=== PATIENT | male | born 1955 | race Caucasian/White ===

== ENCOUNTER 2022-09-14 09:51 | Inpatient (IN) | payer MEDICARE ==
[~2022-09-14] VITALS: Ht 182.9 cm; Wt 94.1 kg
[2022-09-14] MEDS ORDERED: ALPRAZolam 0.25 MG (XANAX) TAB PO PRN (12:00)
[2022-09-14] MEDS ORDERED: FLEET ENEMA ADULT 1 EA BTL PR PRN (12:00)
[2022-09-14] MEDS ORDERED: LACTULOSE SYRUP 10GM/15ML (ENULOSE) 30ML UDC PO PRN (12:00)
[2022-09-14] MEDS ORDERED: LOPERAMIDE 2 MG (IMODIUM) TABLET PO PRN (12:00)
[2022-09-14] MEDS ORDERED: DOCUSATE SODIUM 100 MG (COLACE) CAP PO PRN (12:00)
[2022-09-14] MEDS ORDERED: CALCIUM CARBONATE 500 MG (TUMS) TAB.CHEW PO PRN (12:00)
[2022-09-14] MEDS ORDERED: diphenhydrAMINE 25 MG TAB (BENADRYL) PO PRN (12:00)
[2022-09-14] MEDS ORDERED: BISACODYL 10 MG SUPP (DULCOLAX) PR PRN (12:00)
[2022-09-14] MEDS ORDERED: ONDANSETRON 4 MG (ZOFRAN) ORAL DISSOLVE TAB PO PRN (12:00)
[2022-09-14] MEDS ORDERED: guaiFENesin/CODEINE (ROBITUSSIN AC) 10ML UDC PO PRN (12:00)
[2022-09-14] MEDS ORDERED: MELATONIN 3 MG TABLET PO PRN (12:00)
[2022-09-14] MEDS ORDERED: ACETAMINOPHEN 325 MG TABLET PO PRN (12:00)
--- NOTE | 2022-09-14 12:02 | PM&R Post Admission Assessment ---
PM&R Date of Visit: Sep 14, 2022 Time of Visit: 13:30 History of Present Illness CC: s/p Lumbar spine surgery due to lumbar stenosis with myelopathy HPI: This is a 66yoWM clinic patient of [facility] in [place] who has been in excellent health all of his life who presents to the ARU in need of stren gthening and fall risk prevention in order to DC home alone. Currently he is having severe pain and leaning over to the right when he stands. Bowel function has not returned yet but no urinary retention is present. We will monitor labs and work on fall risk prevention and regain independence in order to go home alone. [facility] summary: Hospital Course:William negro 66 y.o.malewho was admitted to [facility] 09/13/2022nd found to have a principle diagnosis of lumbar stenosis with neurogenic claudication. Patient underwent the scheduled surgical intervention.Postoperatively patient progressed well. However due to chronic deconditioning from his symptoms, and the fact that he lives alone, it is felt that he would benefit from inpatient rehabilitation. His arrangements were made and patient was excepted for transfer to [facility] inpatient rehab on postoperative day 1. Problems Addressed (Secondary Diagnoses): Active Hospital Problems Diagnosis Lumbar stenosis with neurogenic claudication Resolved Hospital Problems No resolved problems to display. Procedures performed: Procedure(s) (LRB): L3-5 Transforaminal Lumbar Interbody Fusion / Posterior Spinal Fusion with bone graft and instrumentation (N/A) Past Dihvliq-Ltdpcw-Rsmyit Hx Past Med/Social Hx: Reviewed Nursing Past Med/Soc Hx, Reviewed and Corrections made Patient Social History Marrital Status: single Employed/Student: retired Alcohol Use: Denies Use Smoking Status: Never a Smoker Past Medical History Surgeries: Orthopedic Genitourinary: Kidney Stones PM&R Allergy/Meds/Data Review Allergies Coded Allergies: aspirin (Verified Allergy, Severe, ANAPHYLACTIC SHOCK, 09/14/22) Home Medications Scheduled PRN Cyclobenzaprine HCl (Cyclobenzaprine HCl), 10 MG PO TID PRN for MUSCLE SPASMS, (Reported) Hydrocodone/Acetaminophen (Hydrocodone-Acetamin 10-325 mg), 1 EACH PO Q4H PRN for PAIN-MODERATE (5-7), (Reported) Naloxone HCl (Naloxone HCl), 1 SPRAY NS UD PRN for OPOID OD, (Reported) Current Medications Current Medications Reviewed Review of Systems Constitutional: see HPI, dizziness EENTM: no symptoms reported Respiratory: no symptoms reported Cardiovascular: no symptoms reported Gastrointestinal: constipation Genitourinary: no symptoms reported Musculoskeletal: back pain Skin: no symptoms reported Psychiatric/Neurological: No Symptoms Reported All Other Systems Reviewed Negative Unless Noted: Yes Physical Exam Physical Exam Vital Signs Capillary Refill : Height, Weight, BMI Height: '" Weight: lbs. oz. kg; BMI Method: General Appearance: No Apparent Distress, WD/WN Eyes: Bilateral Eye Normal Inspection, Bilateral Eye PERRL HEENT: PERRL/EOMI, Normal ENT Inspection, Pharynx Normal Neck: Full Range of Motion, Normal Inspection, Non Tender, Supple, Carotid Bruit Respiratory: Chest Non Tender, Lungs Clear, Normal Breath Sounds, No Accessory Muscle Use, No Respiratory Distress Cardiovascular: Regular Rate, Rhythm, No Edema, No Gallop, No JVD, No Murmur, Normal Peripheral Pulses Gastrointestinal: Normal Bowel Sounds, No Organomegaly, No Pulsatile Mass, Non Tender, Soft Back: Normal Inspection, Decreased Range of Motion, Vertebral Tenderness Extremity: Normal Capillary Refill, Normal Inspection, Normal Range of Motion, Non Tender, No Calf Tenderness, No Pedal Edema Neurologic/Psychiatric: Alert, Oriented x3, Normal Mood/Affect, food safety director II-XII Norm as Tested, Abnormal Gait, Motor Weakness (bilateral legs) Skin: Normal Color, Warm/Dry Lymphatic: No Adenopathy PM&R Medical Assessment & Plan REHAB/MEDICAL ASSESSMENT AND PLAN: REHAB IMPAIRMENT GROUP: Lumbar myelopathy ETIOLOGIC DIAGNOSIS: Lumbar myelopathy The comorbidities that impact the patients function and/or functional outcome by: severe pain, lives alone, leg weakness REHAB PLAN: The patient is being admitted to our comprehensive inpatient rehabilitation facility and can tolerate the intensity of service consisting of at least: 180 minutes of therapy a day, 5 out of 7 days a week Rehab treatment will consist of: PT OT will focus on regaining function in order to live alone at [place] with use of AD and increasing ADL function The patient/family has a good understanding of our discharge process and will benefit from an interdisciplinary inpatient rehabilitation program. The patient has potential to make improvement and is in need of at least two of the following multidisciplinary therapies including but not limited to physical, occupational, speech, and prosthetics and orthotics. Additionally the patient will need services from respiratory, nutritional services, wound care, psychology, etc. (Customize this to each patient). Given the patients complex condition and risk of further medical complications, rehabilitation services cannot be safely or effectively provided at a lower level of care such as a alf facility. BARRIERS TO DISCHARGE: Lives alone ESTIMATED LOS: 6 days DISPOSITION: Home RELEVANT CHANGES SINCE PREADMISSION SCREENING: I have compared the patients medical and functional status at the time of the preadmission screening and there are: no changes PROGNOSIS: Good REHABILITATION GOALS: 1. PT OT will focus on regaining function in order to live alone at [place] with use of AD and increasing ADL function All the above goals were reviewed with the patient and he/she is in agreement. By signing this document, I acknowledge that I have personally performed a full physical examination on this patient within 24 hours of admission to this inpatient rehabilitation facility and have determined the patient to be able to tolerate the above course of treatment at an intensive level for a reasonable period of time. I will be completing a detailed individualized Plan of Care for this patient by day #4 of the patients stay based upon the Preadmission Screen, the Post-Admission Evaluation, and the therapy evaluations. Admission Dx/Comorbidities: (1) Lumbar myelopathy ICD Codes: G95.9 - Disease of spinal cord, unspecified Assessment/Plan Assessment and Plan Assess & Plan/Chief Complaint Assessment: Lumbar myelopathy s/p lumbar spine surgery POD # 1 h/o kidney stones Post op constipation Elevated AST Leukocytosis likely stress related Post op acute blood loss anemia mild Plan: Monitor pain PT OT Pain control NETTIE RAYA DO Sep 14, 2022 12:02
--- OUTSIDE RECORDS SUMMARY | 2022-09-14 13:15 | XMS REPORT | Clinical Summary ---
Author Author [facility] Organization [facility] Address Unknown Phone Unavailable Care Team Providers Care Stucco Applicator Name Role Phone Suraj Rolle MD Unavailable Suraj Rolle MD PCP Source Comments Some departments are not documenting in the electronic medical record. If you d o not see the information that you expected, contact Release of Information in [facility] Information Management department at [phone] for further assistan ce in locating additional records.[facility] Allergies Comments Active Allergy Reactions Severity Noted Date Aspirin ANAPHYLAXIS, High 02/28/2015 EDEMA Medications End Date Status Medication Sig Dispensed Refills Start Date Active ibuprofen (ADVIL) 200 mg Take 200-400 0 tabletIndications: pain mg by mouth every 6 hours as needed for Pain. Take with food. Indications: pain Active traMADoL (ULTRAM) 50 mg Take one 35 tablet 0 tablet tablet by 2 mouth every 8 hours as needed for Pain. 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 Office Visit Oncology 07/02/2022 Travel from Last 3 Months Surgical History Surgery Date Site/Laterality Comments COLONOSCOPY HX CHOLECYSTECTOMY TUMOR EXCISION 06/02/2021 Buttocks/Left Excision LEFT b uttocks mass performed by Brayden Montoya MD at [facility] OR Social History Date Tobacco Use Types Packs/Day Years Used Smoking Tobacco: Never Smokeless Tobacco: Never Tobacco Cessation: Counseling Given: Not Answered Comments Alcohol Use Standard Drinks/Week Never 0 (1 standard drink = 0.6 o z pure alcohol) Alcohol Habits Answer Date Recorded How often do you have a drink containing alcohol? Never 05/24/2021 How many drinks containing alcohol do you have on No t asked a typical day when you are drinking? How often do you have six or more drinks on one Not asked occasion? Sex Assigned at Date Recorded Male 05/24/2021 1:22 PM CDT Obstetrics History Last Filed Vital Signs Reading Time Taken Comments Vital Sign 122/76 07/18/2022 11:19 AM LIBRARY CLERICAL ASSISTANT Blood Pressure 61 07/18/2022 11:19 AM LIBRARY CLERICAL ASSISTANT Pulse 36.7 C (98.1 F) 07/18/2022 11:19 AM LIBRARY CLERICAL ASSISTANT Temperature 18 07/18/2022 11:19 AM LIBRARY CLERICAL ASSISTANT Respiratory Rate 100% 07/18/2022 11:19 AM LIBRARY CLERICAL ASSISTANT Oxygen Saturation - - Inhaled Oxygen Concentration 96.8 kg (213 lb 6.4 oz) 07/18/2022 11:19 AM LIBRARY CLERICAL ASSISTANT Weight 182.9 cm (6') 07/18/2022 11:19 AM LIBRARY CLERICAL ASSISTANT Height 28.94 07/18/2022 11:19 AM LIBRARY CLERICAL ASSISTANT Body Mass Index Plan of Treatment Health Maintenance Due Date Last Done Comments MEDICARE ANNUAL WELLNESS 1955 VISIT COVID-19 VACCINE (#1) 05/07/1956 DTAP/TDAP VACCINES (1 - 11/05/1973 Tdap) HEPATITIS C SCREENING 11/05/1973 PHYSICAL (COMPREHENSIVE) 11/05/1973 EXAM COLORECTAL CANCER 11/05/2000 SCREENING SHINGLES RECOMBINANT 11/05/2005 VACCINE (1 of 2) PNEUMOCOCCAL VACCINE (1 - 11/05/2020 PCV) INFLUENZA VACCINE (#1) 2022 ADVANCED CARE PLANNING 08/05/2022 DISCUSSION AND DOCUMENTATION DEPRESSION SCREENING 08/05/2022 Procedures Comments Procedure Name Priority Date/Time Associated Diag nosis GA ARTHROCENTESIS Routine 07/18/2022 Trochanteric bursitis of ASPIR&/INJ MAJOR JT/BURSA 11:00 AM LIBRARY CLERICAL ASSISTANT left hip W/O US MRI LOWER EXT JNT WO/W Routine 07/03/2022 Left hi p pain CONT LEFT MRI PELVIS EXTERNAL Routine 07/03/2022 IMAGING 12:00 AM LIBRARY CLERICAL ASSISTANT from Last 3 Months Results * GA ARTHROCENTESIS ASPIR&/INJ MAJOR JT/BURSA W/O US (07/18/2022 11:00 AM LIBRARY CLERICAL ASSISTANT) Narrative OTHER OUTSIDE LAB - 07/18/2022 11:00 AM LIBRARY CLERICAL ASSISTANT Brayden Montoya MD 07/18/2022 12:11 PM Si Joint Injection Anesth/Steroid Location: hip L greater trochanteric bursa109/18/2021 11:00 AM Consent: Consent obtained: verbal Consent given by: patient Risks discussed: skin discoloration and soft tissue reaction Alternatives discussed: no treatment [place] Protocol: Relevant documents: relevant documents present and verified Test results: test results available and properly labeled Imaging studies: imaging studies available Required items: required blood products, implants, devices, and special equipment available Site marked: the operative site was not marked Patient identity confirmed: Patient identify confirmed verbally with patient. Time out: Immediately prior to procedure a "time out" was called to verify the correct patient, procedure, equipment, shipping support and site/side marked as required Procedures Details: Indications: pain Local anesthetic: ethyl chloride spray Needle size: 22 G Approach: lateral Medications administered: 3 mL bupivacaine PF 0.25 %; 40 mg triamcinolone acetonide 40 mg/mL Patient tolerance: Patient tolerated the procedure well with no immediate complications. Pressure was applied, and hemostasis was accomplished. Brayden Montoya MD PROCDOC ORDERABLES City/State/ZIP Code Phone Number Performing Address Organization OTHER OUTSIDE LAB * MRI PELVIS EXTERNAL IMAGING (07/03/2022 12:00 AM LIBRARY CLERICAL ASSISTANT) Anatomical Location / Laterality Collection Method / Volume Sayra ection Time Received Time Specimen (Source) Narrative Scheduling, Silent - 07/06/2022 9:49 AM LIBRARY CLERICAL ASSISTANT This order has been auto finalized and does not contain a result. Radiologist RADIOLOGY EXTERNAL ORDERABL ES Outpatient * MRI LOWER EXT JNT WO/W CONT LEFT (07/03/2022) Modality Anatomical Region Laterality Other LOWEREXT Left Brayden Montoya MD MR ORDERABLES from Last 3 Months Insurance Type Payer Benefit Subscriber ID Effective Phone Address Plan / Dates Group Medicare MEDICARE MEDICARE [id number] 2021-P [phone] [address] [place] [address] Medicare [place] [id number] 2022-P [phone] [address] [place] [address] (Home) [place] [address] Care Teams Start Date End Date Stucco Applicator Relationship Specialty 05/24/21 Suraj Rolle MD PCP - General Surgery [address] [place] [address] 05/16/21 Suraj Rolle MD Surgery [address] [place] [address]
--- OUTSIDE RECORDS SUMMARY | 2022-09-14 13:17 | XMS REPORT | Encounter Summary ---
Author Author [facility] Organization [facility] Address Unknown Phone Unavailable Care Team Providers Care Information Systems Security Officer Name Role Phone Suraj Rolle MD Unavailable Suraj Rolle MD PCP Reason for Visit * Reason Comments Follow Up RTC bursa injection Encounter Details Care Team Description [place] [address] [place] [address] Trochanteric bursitis of left hip (Prima ry Dx) 07/18/2022 Office Visit [facility]: [facility] Pavilion: [id number] [place] [phone] Social History Date Tobacco Use Types Packs/Day [...] Date Recorded Male 05/24/2021 1:22 PM CDT Date Recorded COVID-19 Exposure Response 07/18/2022 10:38 AM ASSISTANT PROFESSOR OF BIOLOGY In the last 10 days, have you been in contact with N o / Unsure someone who was confirmed or suspected to have Coronavirus/COVID-19? documented as of this encounter Last Filed Vital Signs Reading Time Taken Comments Vital Sign 122/76 07/18/2022 11:19 AM ASSISTANT PROFESSOR OF BIOLOGY Blood Pressure 61 07/18/2022 11:19 AM ASSISTANT PROFESSOR OF BIOLOGY Pulse 36.7 C (98.1 F) 07/18/2022 11:19 AM ASSISTANT PROFESSOR OF BIOLOGY Temperature 18 07/18/2022 11:19 AM ASSISTANT PROFESSOR OF BIOLOGY Respiratory Rate 100% 07/18/2022 11:19 AM ASSISTANT PROFESSOR OF BIOLOGY Oxygen Saturation - - Inhaled Oxygen Concentration 96.8 kg (213 lb 6.4 oz) 07/18/2022 11:19 AM ASSISTANT PROFESSOR OF BIOLOGY Weight 182.9 cm (6') 07/18/2022 11:19 AM ASSISTANT PROFESSOR OF BIOLOGY Height 28.94 07/18/2022 11:19 AM ASSISTANT PROFESSOR OF BIOLOGY Body Mass Index documented in this encounter Functional Status Date of Assessment Functional Status Response 07/18/2022 Does the patient have a hearing impairment: No 07/18/2022 Does the patient have a visual impairment: Yes 07/18/2022 Does the patient have impaired ambulation: Yes 07/18/2022 Does the patient have an activity of daily living No (ADL) impairment: 07/18/2022 Does the patient have an instrumental activity of No daily living (IADL) impairment: Date of Assessment Cognitive Status Response 07/18/2022 Does the patient have a cognitive impairment: No documented as of this encounter Progress Notes * Brayden Montoya MD - 07/18/2022 11:00 AM CST Orthopaedic Post-Operative Visit Date of Visit:07/18/22 DIAGNOSIS: Atypical Lipoma of the left buttock Left trochanteric bursitis PROCEDURE: Marginal Excision on 06/02/2021 PLAN: injection of greater trochanter today ASSESSMENT William Villalpando returns to discuss continued pain over the left greater troc hanter. MRI is negative for abnormalities beyond expected postsurgical changes. His pain is located directly over the greater trochanter. Will attempt a ster oid injection today. Return to clinic as needed. Interval Hx: Interval update as above PHYSICAL EXAM: -No palpable soft tissue masses -Normal ROM with hip flexion -Weakness with hip abduction -Tenderness to palpation over the greater trochanter STANT PROFESSOR OF BIOLOGY documented in this encounter Procedure Notes * Bryaden Montoya MD - 07/18/2022 11:00 AM CSTAssociated Order(s): Si Joint Injection Anesth/Steroid Post-Procedure Diagnose(s): Trochanteric bursitis of left hip Si Joint Injection Anesth/Steroid Location: hip L greater trochanteric bursa109/18/2021 11:00 AM Consent: Consent obtained: verbal Consent given by: patient Risks discussed: skin discoloration and soft tissue reaction Alternatives discussed: no treatment [place] Protocol: Relevant documents: relevant documents present and verified Test results: test results available and properly labeled Imaging studies: imaging studies available Required items: required blood products, implants, devices, and special equipmen t available Site marked: the operative site was not marked Patient identity confirmed: Patient identify confirmed verbally with patient. Time out: Immediately prior to procedure a "time out" was called to verify the c orrect patient, procedure, equipment, office support associate and site/side marked as requ ired Procedures Details: Indications: pain Local anesthetic: ethyl chloride spray Needle size: 22 G Approach: lateral Medications administered: 3 mL bupivacaine PF 0.25 %; 40 mg triamcinolone aceton tonia 40 mg/mL Patient tolerance: Patient tolerated the procedure well with no immediate compli cations. Pressure was applied, and hemostasis was accomplished. STANT PROFESSOR OF BIOLOGY documented in this encounter Plan of Treatment Not on filedocumented as of this encounter Procedures Comments Procedure Name Priority Date/Time Associated Diag nosis UT ARTHROCENTESIS Routine 07/18/2022 Trochanteric bursitis of ASPIR&/INJ MAJOR JT/BURSA 11:00 AM ASSISTANT PROFESSOR OF BIOLOGY left hip W/O US documented in this encounter Results * UT ARTHROCENTESIS ASPIR&/INJ MAJOR JT/BURSA W/O US (07/18/2022 11:00 AM ASSISTANT PROFESSOR OF BIOLOGY) Narrative OTHER OUTSIDE LAB - 07/18/2022 11:00 AM Brayden Weiss MD 07/18/2022 12:11 PM Si Joint Injection Anesth/Steroid Location: hip L greater trochanteric bursa109/18/2021 11:00 AM Consent: Consent obtained: verbal Consent given by: patient Risks discussed: skin discoloration and soft tissue reaction Alternatives discussed: no treatment [place] Protocol: Relevant documents: relevant documents present and [...] to verify the correct patient, procedure, equipment, office support associate and site/side marked as required Procedures Details: [...] Number Performing Address Organization OTHER OUTSIDE LAB documented in this encounter Visit Diagnoses Diagnosis Trochanteric bursitis of left hip - Dennise blas Enthesopathy of hip region documented in this encounter Administered Medications Action Date Dose Rate Site Medication Order MAR Action 07/18/2022 11:48 AM ASSISTANT PROFESSOR OF BIOLOGY 4 mL bupivacaine HCl (MARCAINE) 0.25 % Given injection 4 mL 4 mL, Injection, ONCE, 1 dose, On Sat07/18/22 at 1245 07/18/2022 11:00 AM ASSISTANT PROFESSOR OF BIOLOGY 3 mL bupivacaine PF (MARCAINE) 0.25 % Given injection 3 mL 3 mL, Injection, ONCE PRN, 1 dose, Starting on Sat07/18/22 at 1100, Until Sat07/18/22 at 1100 07/18/2022 11:49 AM ASSISTANT PROFESSOR OF BIOLOGY 40 mg Hip, Lef t triamcinolone acetonide (KENALOG-40) Given injection 40 mg 40 mg, Intramuscular, ONCE, 1 dose, On Sat07/18/22 at 1245 07/18/2022 11:00 AM ASSISTANT PROFESSOR OF BIOLOGY 40 mg triamcinolone acetonide (KENALOG-40) Given injection 40 mg 40 mg, Injection, ONCE PRN, 1 dose, Starting on Sat07/18/22 at 1100, Until Sat07/18/22 at 1100 documented in this encounter Additional Health Concerns Noted Time Assessment 07/18/2022 11:21 AM ASSISTANT PROFESSOR OF BIOLOGY A fall risk assessment has been complet ed for the patient documented as of this encounter Care Teams Start Date End Date Information Systems Security Officer Relationship Specialty 05/24/21 Suraj Rolle MD PCP - General Surgery [address] [place] [address] 05/16/21 Suraj Rolle MD Surgery [address] [place], [place] [phone] documented as of this encounter
--- OUTSIDE RECORDS SUMMARY | 2022-09-14 13:17 | XMS REPORT | Encounter Summary ---
Author Author [facility] Organization [facility] Address Unknown Phone Unavailable Care Team Providers Care Dance Therapist Name Role Phone Suraj Rolle MD Unavailable Suraj Rolle MD PCP Encounter Details Care Team Description Date Type Department 07/18/2022 Travel Social History Date Tobacco Use Types Packs/Day Years Used Smoking Tobacco: Never Smokeless Tobacco: Never Comments Alcohol Use Standard Drinks/Week Never 0 [...] Recorded COVID-19 Exposure Response 07/18/2022 10:38 AM FLUID DESIGNER In the last 10 days, have you been in contact with N o / Unsure someone who was confirmed or suspected to have Coronavirus/COVID-19? documented as of this encounter Functional Status Date of Assessment [...] impairment: No documented as of this encounter Plan of Treatment Not on filedocumented as of this encounter Visit Diagnoses Not on filedocumented in this encounter Additional Health Concerns Noted Time Assessment 07/18/2022 11:21 AM FLUID DESIGNER A fall risk assessment has been complet ed for the patient documented as of this encounter Care Teams Start Date End Date Dance Therapist Relationship Specialty 05/24/21 Suraj Rolle MD PCP - General Surgery [address] [place] [phone] 05/16/21 Suraj Rolle MD Surgery [address] [place] [phone] documented as of this encounter
[2022-09-14 13:30] VITALS: BP 120/85
[2022-09-14] MEDS ORDERED: CYCL10TA25 PO (13:57)
[2022-09-14] MEDS ORDERED: NALO4SPR3 NS (13:57)
[2022-09-14] MEDS ORDERED: HYDR-3820 PO (13:57)
--- NOTE | 2022-09-14 14:24 | ST Cognitive Linguistic Eval ---
Speech Evaluation-General Medical Diagnosis s/p L3-5, TLIF/PSF Onset Date: Sep 14, 2022 Therapy Diagnosis Therapy Diagnosis: Intact (Baseline) Cognition Precautions Precautions: Fall Precautions/Isolations: Fall Prevention, Standard Precautions Referral Referring Physician: Dr. Michel Reason for Referral: Evaluation/Treatment Medical History Reviewed History: Yes Speech PLF-Current Status Prior Level of Function The patient denied prior concerns or difficulties with his speech, language, cognition or swallowing. Per patient, "I may need to read something two or three times now but that's okay." The patient reported the use of glasses but stated his vision is "fine" without them as they are not present at the facility. Subjective The patient was lying in bed, awake and alert, upon entrance to his room by the clinician. The patient greeted the clinician appropriately and was agreeable to participation in the cognitive linguistic assessment. Language Eval: Auditory Comprehends Simple Yes/No Ques: Functional Indent/Objects Multiple [place]: Functional Follows 1-Step Commands: Functional Follows General Conversations: Functional Language Eval: Verbal Language Completes Spontaneous Greeting: Functional Produces Auto, Serial Info: Functional Word Finding: Functional Requests Basic Needs: Functional Language Evaluation: Reading Follows Simple Written Direct: Functional Language Evaluation: Writing Writes to Simple Dictation: Functional Cognitive Patient Orientation The patient was independently oriented to self, location, month, day of the week, date and year. Objective Cognitive Domain Attention: WNL Memory: WNL Problem Solving: Functional Executive Functions: WNL Visuospatial Skills: WNL Composite Severity Rating: WNL Clock Drawing Severity Rating: WNL Objective Formal/Standardized Tests [facility] Mental Status Exam (UMS) Results The patient demonstrated a result of +28/30 on the SLUMS correlating to a result of cognitive linguistic skills within normal limits. Oral Motor/Speech Production The patient does not display dysarthria or apraxia of speech at this time. The patient is 100% intelligible in known and unknown contexts. Impression The patient displayed intact cognitive linguistic skills. Skilled speech pathology services are not warranted at this time. Speech-Plan Treatment Plan Speech Therapy Treatment Plan: Discontinue ST Treatment Duration: Sep 14, 2022 Frequency: 1 time per week Estimated Hrs Per Day: .25 hour per day Rehab Potential: Good Pt/Family Agrees to Plan: Yes Safety Risks/Education Teaching Recipient: Patient Teaching Methods: Discussion Response to Teaching: Verbalize Understanding Education Topics Provided: Results, Recommendations, Plan of Care Time Speech Therapy Time In: 14:40 Speech Therapy Time Out: 15:00 DATE: Sep 14, 2022 Total Billed Time: 20 Billed Treatment Time 1, DIO SARMIENTO ELIZ[facility]ETH ST Sep 14, 2022 14:24
--- NOTE | 2022-09-14 14:33 | Physical Therapy Evaluation ---
PT Evaluation-General Medical Diagnosis Admission Date Sep 14, 2022 at 13:12 Medical Diagnosis: s/p L3-5, TLIF/PSF Onset Date: Sep 14, 2022 Therapy Diagnosis Therapy Diagnosis: impaired mobility Precautions Precautions/Isolations: Fall Prevention, Standard Precautions Weight Bear Status back precautions and restricted lifting Referral Physician: Jodi iMchel DO Reason for Referral: Evaluation/Treatment Medical History Reviewed History: Yes Social History Home: Single Level Current Living Status: Alone Entry Into Home: Stairs Without Railing PT Steps Into Home: 2 Prior Prior Level of Function SCALE: Activities may be completed with or without assistive devices. 6-Xzvbkghfdd-vyxvkdh completes the activity by him/herself with no assistance from a helper. 5-Set-up or Clean-up Assistance-helper sets up or cleans up; patient completes activity. [place] assists only prior to or following the activity. 4-Supervision or Touching Assistance-helper provides verbal cues and/or touchin g/steadying and/or contact guard assistance as patient completes activity. Assistance may be provided throughout the activity or intermittently. 3-Partial/Moderate Assistance-helper does LESS THAN HALF the effort. [place] lifts, holds or supports trunk or limbs, but provides less than half the effort. 2-Substantial/Maximal Assistance-helper does MORE THAN HALF the effort. [place] lifts or holds trunk or limbs and provides more than half the effort. 9-Uzfzpdrxy-uuamja does ALL the effort. Patient does none of the effort to complete the activity. Or, the assistance of 2 or more helpers is required for the patient to complete the activity. If activity was not attempted, code reason: 7-Patient Refused. 9-Not Applicable-not attempted and the patient did not perform the activity before the current illness, exacerbation or injury. 10-Not Attempted due to Environmental Limitations-(lack of equipment, weather restraints, etc.). 88-Not Attempted due to Medical Conditions or Safety Concerns. Bed Mobility: 6 Transfers (B,C,W/C): 6 Gait: 6 Stairs: 6 Indoor Mobility (Ambulation): Independent Stairs: Independent Patient states he has been using a single point cane for 9-10 weeks. PT Evaluation-Current Subjective Patient comes to hospital via family vehicle, has 5/10 low back pain. Will be co-treating with OT for part of tx due to poor patient mobility, strength, endurance, pain with activity, coordinate UE and LE with activity, safety and reduce risk of falls. Pain Section J - Health Conditions 1. Rarely or not at all 2. Occasionally 3. Frequently 4. Almost constantly 8. Unable to answer Pain Effect on Sleep: 2 Pain Interference with Therapy: 2 Pain Interference w/Day-to-Day: 2 Pt/Family Goals to be independent at home. Objective Patient Orientation: Person, Place, Situation back brace ROM/Strength ROM Lower Extremities WNL Strength Lower Extremities LLE (hip flexion 3+/5, knee flexion 4/5, knee extension 4/5, dorsiflexion 3+/5), RLE (hip flexion 3+/5, knee flexion 4/5, knee extension 4/5, dorsiflexion 3+/5) Sensory Vision: Functional Hearing: Functional Sensation Right Lower Extremit: Intact Sensation Left Lower Extremity: Intact Transfers Roll Left & Right (QC): 4 Sit to Lying (QC): 4 Lying to Sitting/Side of Bed(Q: 4 Sit to Stand (QC): 3 Chair/Cwo-qz-Mtyra Xfer(QC): 4 Toilet Transfer (QC): 4 Car Transfer (QC): 3 Patient performs rolling and supine <-> sit with SBA (has quite a bit of pain with supine <-> sit but can do it on his own), sit <-> stand min assist, transfers CGA, car transfer min assist. Patient needs cues for hand placement and positioning. In his room, patient performs bathing and dressing in front of sink, PT assist with positioning and safety. Gait Does the Patient Walk?: Yes Mode of Locomotion: Walk Anticipated Mode of Locomotion: Walk Walk 10 feet (QC): 4 Walk 50 ft with 2 Turns(QC): 4 Walk 150 ft (QC): 4 Walking 10ft/uneven surface-QC: 3 Distance: 150', 100' Gait Assistive Device: FWW Comments/Gait Description Patient can ambulate 150' with a rolling walker with CGA (including 50' with at least 2 turns of 90 degrees but needs min assist for 10' over an uneven surface), gait is slow, bears a lot of weight through his arms to take strain off his back, mostly slides feet across the floor and tends to drag his left foot a little. Wheelchair Training Wheel 50 ft with 2 turns (QC): 9 Wheel 150 ft (QC): 9 Stairs 1 Step (curb) (QC): 88 4 Steps (QC): 88 12 Steps (QC): 88 Stairs not performed, no safe, patient has extreme pain when not bearing heavy weight through his arms. Balance Sitting Static: Good Sitting Dynamic: Good Standing Static: Fair Standing Dynamic: Fair Picking up an Object (QC): 4 (CGA using a dishroom attendant) Treatment Standing activity placing pegs and reaching with one hand to work on core strength and activity tolerance. PT performed bed mobility and transfers, ambulation, positioning and safety during bathing and dressing, standing and safety during peg and reaching activity, OT performed bathing, dressing, peg and reaching activity, coordinate UE and LE during activity Assessment/Needs Patient in bed post tx with nurse call, phone, tray, all needs met. Patient has impaired mobility, strength, endurance, severe pain with activity. He does need min assist for sit <-> stand. Rehab Potential: Fair PT Assisted Goals Assisted Goals PT Memory Care Program Director Goals Time Frame: Sep 28, 2022 Roll Left to Right (QC): 6 Sit to Lying (QC): 6 Lying-Sitting on Side/Bed(QC): 6 Sit to Stand (QC): 4 (SBA) Chair/Gvf-sm-Mvtwu Xfer(QC): 4 (SBA) Toilet/Commode Transfer (QC): 4 (SBA) Car Transfer (QC): 4 (SBA) Does the Patient Walk: Yes Walk 10 feet (QC): 4 (SBA) Walk 10ft-Uneven Surface(QC): 4 (SBA) Walk 50ft with 2 Turns (QC): 4 (SBA) Walk 150 ft (QC): 4 (SBA) Wheel 50 feet with 2 turns (QC: 9 Wheel 150 feet: 9 1 Step (curb) (QC): 4 (CGA) 4 Steps (QC): 4 (CGA) 12 Steps (QC): 88 Picking up an Object (QC): 4 (SBA using a dishroom attendant) PT Plan Problem List Problem List: Activity Tolerance, Functional Strength, Safety, Balance, Gait, Transfer, Bed Mobility, ROM Treatment/Plan Treatment Plan: Continue Plan of Care Treatment Plan: Bed Mobility, Education, Functional Activity Veronica, Functional Strength, Group Therapy, Gait, Safety, Therapeutic Exercise, Transfers Treatment Duration: Sep 28, 2022 Frequency: At least 5 of 7 days/Wk (IRF) Estimated Hrs Per Day: 1.5 hours per day Patient and/or Family Agrees t: Yes Safety Risks/Education Patient Education: Gait Training, Transfer Techniques, Reviewed Precautions, Correct Positioning, W/C Management, Reviewed Don/Doff Brace, Safety Issues Teaching Recipient: Patient Teaching Methods: Demonstration, Discussion Response to Teaching: Reinforcement Needed Discharge Recommendations Plan Patient will perform bed mobility and transfer training, balance and endurance training, functional strengthening, stair training, gait training, and education, to improve functional mobility and independence at home. Therapy Discharge Recommendati: Home & Family, Post Acute PT Time Time In: 1310 Time Out: 1440 DATE: Sep 14, 2022 Total Billed Treatment Time: 80 Total Billed Treatment 1 visit EVM 10' FA 70' PT eval from [id number], OT eval from [id number], co-treat from [id number] DEVANG NUNN PT Sep 14, 2022 14:33
--- NOTE | 2022-09-14 14:40 | Occupational Therapy Eval ---
OT Evaluation-General/PLF Medical Diagnosis Admission Date Sep 14, 2022 at 13:12 Medical Diagnosis: s/p L3-5, TLIF/PSF Onset Date: Sep 14, 2022 Therapy Diagnosis Therapy Diagnosis: decreased ADL status Precautions Precautions/Isolations: Fall Prevention, Standard Precautions Comments Back brace when OOB, Back Precautions, 5lb lifting restriction Referral Physician: Anand Referral Reason: Evaluation/Treatment Medical History Current History Pt began having low back pain and LE pain ~6 months ago. s/p L3-5 TLIF/PSF 09/13/[address] Christine. Pt transferred to [facility] 09/14/22 Social History Home: Single Level Current Living Status: Alone Entry Into Home: Stairs Without Railing Steps Into Home: 2 ADL-Prior Level of Function SCALE: Activities may be completed with or without assistive devices. 1-Xyrdraewna-pqrgntx completes the activity by him/herself with no assistance from a helper. 5-Set-up or Clean-up Assistance-helper sets up or cleans up; patient completes activity. [place] assists only prior to or following the activity. 4-Supervision or Touching Assistance-helper provides verbal cues and/or touching/steadying and/or contact guard assistance as patient completes activity. Assistance may be provided throughout the activity or intermittently. 3-Partial/Moderate Assistance-helper does LESS THAN HALF the effort. [place] lifts, holds or supports trunk or limbs, but provides less than half the effort. 2-Substantial/Maximal Assistance-helper does MORE THAN HALF the effort. [place] lifts or holds trunk or limbs and provides more than half the effort. 5-Fncpbvzel-zzevmw does ALL the effort. Patient does none of the effort to complete the activity. Or, the assistance of 2 or more helpers is required for the patient to complete the activity. If activity was not attempted, code reason: 7-Patient Refused. 9-Not Applicable-not attempted and the patient did not perform the activity before the current illness, exacerbation or injury. 10-Not Attempted due to Environmental Limitations-(lack of equipment, weather restraints, etc.). 88-Not Attempted due to Medical Conditions or Safety Concerns. ADL PLOF Comments Pt reports IND with ADLS and functional mobility, he has been using a cane recently due to LE and back pain. Pt has both a walk in shower and a tub/shower, no SC. Self Care: Independent Functional Cognition: Independent OT Current Status Subjective Pt agreeable to OT evaluation followed by OT/PT cotreat. Mental Status/Objective Patient Orientation: Person, Place, Time, Situation Attachments: Other-See Comments (back brace) Current Hand Dominance: Right Upper Extremity ROM WFL, BUE shoulder flexion to approx 150 degrees Upper Extremity Coordination WFL Upper Extremity Sensation WFL Upper Extremity Strength grossly 4+/5 BUEs ADL-Treatment Eating (QC): 6 Oral Hygiene (QC): 6 (seated) Shower/Bathe Self (QC): 4 (CGA in stand with sponge bath) Upper Body Dressing (QC): 3 (Min A with back brace. Set up with shirt.) Lower Body Dressing (QC): 4 (CGA) On/Off Footwear (QC): 3 (Min A with gripper socks.) Toileting Hygiene (QC): 4 (CGA) Other Treatments OT evaluation complete. OT/PT cotreat due to skill of 2 clinicians required which a rehabilitation specialist could not perform in order to coordinate UE/LEs, decrease fall risk, and due to pt's limitations in strength, activity tolerance, standing tolerance/balance, and mobility/transfers. OT focused on UE placement, cues for sequencing and safety and ADLs, PT focused on LE placement, gross overall movement, transfers and mobility. Pt completed functional mobility/transfers including car transfer, mobility using FWW, uneven surface. Pt completed sponge bath, dressing and grooming tasks seated at sink. Pt taken to therapy gym via w/c, completing functional standing activity in parallel bars. Pt able to complete LUE reaching task, placing x30 pegs into foam pegboard, holding onto parallel bar with RUE. Pt attempted task with RUE, but increased pain in R hip when pt let go of parallel bar. Pt took seated rest break, then stood in parallel bars, reaching x10 reps with RUE in various planes, after a few reps pt again began having increased pain so task terminated. Pt used FWW to return to room, sit EOB, then transfer supine. Post tx, pt in bed, call light in reach and all needs met. Pt able to recall 1/3 back precautions throughout tx, requiring min VCs to adhere to precautions. SBA rolling and supine to/from sit, min A sit to/from stand, CGA transfers, min A car transfer. Pt requires cues for UE placement and positioning. Pt able to perform functional mobility 150' with FWW, CGA (min A on uneven surface). Education OT Patient Education: Correct positioning, Energy conservation, Modified ADL techniques, Progress toward Goal/Update tx plan, Purpose of tx/functional activities, Reviewed precautions, Rehab process, Safety issues, Transfer techniques Teaching Recipient: Patient Teaching Methods: Discussion Response to Teaching: Verbalize Understanding BIMS CAM BIMS Expression of Ideas and Wants: Without Difficulty Understanding Verbal Content: Understands Brief Interview/Mental Status: Yes IRF GRECIA BIMS: IRF GRECIA BIMS Response (Comments) Value Repitition of Three Words Three 3 Recalls Socks No, Could Not Recall (boots) 0 Recalls Blue Yes, No Cue Required 2 Recalls Bed Yes, No Cue Required 2 Year Correct 3 Month Accurate Within 5 Days 2 Day Correct 1 Total 13 Should Staff Asses. Mental St[address] No CAM Mental Status Change/Baseline: 0 Inattention: 0 Disorganized thinkin Altered level of consciousness: 0 OT Short Term Goals Short Term Goals Time Frame: Sep 26, 2022 Upper body dressin Lower body dressin Putting on/taking off footwear: 5 OT Long-Term Goals Long-Term Goals Time Frame: Oct 05, 2022 Eating (QC): 6 Oral Hygiene (QC): 6 Toileting Hygiene (QC): 6 Shower/Bathe Self (QC): 5 Upper Body Dressing (QC): 6 Lower Body Dressing (QC): 6 On/Off Footwear (QC): 6 Additional Goals: 1-Demonstrate ADL Tasks, 2-Verbalize Understanding, 3- ImproveStrength/Veronica 1=Demonstrate adherence to instructed precautions during ADL tasks. 2=Patient will verbalize/demonstrate understanding of assistive devices/modifications for ADL. 3=Patient will improve strength/tolerance for activity to enable patient to perform ADL's. OT Education/Plan Problem List/Assessment Assessment: Decreased Activ Tolerance, Impaired Funct Balance, Impaired I ADL's, Impaired Self-Care Skills Discharge Recommendations Plan/Recommendations: Continue POC Treatment Plan/Plan of Care Patient would benefit from OT for education, treatment and training to promote independence in ADL's, mobility, safety and/or upper extremity function for ADL's. Plan of Care: ADL Retraining, Functional Mobility, Group Exercise/Act as Ind, UE Funct Exercise/Act Treatment Duration: Oct 05, 2022 Frequency: At least 5 of 7 days/Wk (IRF) Estimated Hrs Per Day: 1.5 hours per day Agreement: Yes Rehab Potential: Good Time Start Time: 13:20 Stop Time: 14:40 DATE: Sep 14, 2022 Total Time Billed (hr/min): 80 Billed Treatment Time [id number] OT eval (10'), [id number] Cotreat (70') 1, EVM (10'), ADL 2 (35'), FA 2 (35') ARUN VALLE OT Sep 14, 2022 14:40
[2022-09-14] MEDS ORDERED: RX-CYCLOBENZAPRINE 10 MG (FLEXERIL) TAB PPK#3 PO PRN (17:00)
[2022-09-14] MEDS ORDERED: CYCLOBENZAPRINE 10 MG (FLEXERIL) TAB PO PRN (17:30)
[2022-09-14 20:45] VITALS: BP 128/76
[2022-09-14] MEDS: DOCUSATE SODIUM 100 MG (COLACE) CAP PO SCH (21:14)
[2022-09-14] MEDS: SENNA W/DOCUSATE (SENOKOT S) TABLET PO SCH (21:14)
[2022-09-14] MEDS: polyethylene glycoL POWDER 17 GM (MIRALAX) PACK PO SCH (21:15)
[2022-09-15 05:26] LABS: BASOPHILS % (AUTO) 0 % (0-10); EOSINOPHILS % (AUTO) 0 % (0-10); HEMATOCRIT 36 % (40-54); HEMOGLOBIN 12.1 g/dL (13.3-17.7); LYMPHOCYTES # (AUTO) 1.9 10^3/uL (1.0-4.0); LYMPHOCYTES % (AUTO) 15 % (12-44); MEAN CORPUSCULAR HEMOGLOBIN 31 pg (25-34); MEAN CORPUSCULAR HGB CONC 33 g/dL (32-36); MEAN CORPUSCULAR VOLUME 94 fL (80-99); MEAN PLATELET VOLUME 9.9 fL (9.0-12.2); MONOCYTES # (AUTO) 1.4 10^3/uL (0.0-1.0); MONOCYTES % (AUTO) 11 % (0-12); NEUTROPHILS # (AUTO) 9.5 10^3/uL (1.8-7.8); NEUTROPHILS % (AUTO) 74 % (42-75); PLATELET COUNT 180 10^3/uL (130-400); WHITE BLOOD COUNT 12.9 10^3/uL (4.3-11.0)
[2022-09-15 05:41] LABS: ALBUMIN 3.9 GM/DL (3.2-4.5)
[2022-09-15 05:44] LABS: TOTAL PROTEIN 6.9 GM/DL (6.4-8.2)
[2022-09-15 05:46] LABS: BILIRUBIN,TOTAL 1.6 MG/DL (0.1-1.0)
[2022-09-15 05:47] LABS: CREATININE SERUM 0.85 MG/DL (0.60-1.30)
[2022-09-15 07:53] VITALS: BP 118/79
[2022-09-15] MEDS: DOCUSATE SODIUM 100 MG (COLACE) CAP PO SCH ×3 (09:01→19:58)
[2022-09-15] MEDS: SENNA W/DOCUSATE (SENOKOT S) TABLET PO SCH ×3 (09:02→19:58)
[2022-09-15] MEDS: polyethylene glycoL POWDER 17 GM (MIRALAX) PACK PO SCH ×2 (09:02→19:58)
--- NOTE | 2022-09-15 09:51 | Physical Therapy Daily Note ---
PT Daily Note-Current Subjective Pt in chair upon arrival and agrees to PT. Says he is feeling a lot better today. Rates his pain 1-2/10 Pain Section J - Health Conditions 1. Rarely or not at all 2. Occasionally 3. Frequently 4. Almost constantly 8. Unable to answer Pain Effect on Sleep: 2 Pain Interference with Therapy: 2 Pain Interference w/Day-to-Day: 2 Mental Status Patient Orientation: Person, Place, Time, Situation Transfers SCALE: Activities may be completed with or without assistive devices. 8-Idagqymagf-yyucokh completes the activity by him/herself with no assistance from a helper. 5-Set-up or Clean-up Assistance-helper sets up or cleans up; patient completes activity. [place] assists only prior to or following the activity. 4-Supervision or Touching Assistance-helper provides verbal cues and/or touching/steadying and/or contact guard assistance as patient completes activity. Assistance may be provided throughout the activity or intermittently. 3-Partial/Moderate Assistance-helper does LESS THAN HALF the effort. [place] lifts, holds or supports trunk or limbs, but provides less than half the effort. 2-Substantial/Maximal Assistance-helper does MORE THAN HALF the effort. [place] lifts or holds trunk or limbs and provides more than half the effort. 1-Lmjwzyvsz-aolqvw does ALL the effort. Patient does none of the effort to complete the activity. Or, the assistance of 2 or more helpers is required for the patient to complete the activity. If activity was not attempted, code reason: 7-Patient Refused. 9-Not Applicable-not attempted and the patient did not perform the activity before the current illness, exacerbation or injury. 10-Not Attempted due to Environmental Limitations-(lack of equipment, weather restraints, etc.). 88-Not Attempted due to Medical Conditions or Safety Concerns. Sit to Stand (QC): 4 Weight Bearing back precautions and restricted lifting Gait Training Does the Patient Walk?: Yes Distance: 500' Walk 10 feet (QC): 5 Walk 50 ft with 2 Turns(QC): 4 Walk 150 ft (QC): 4 Gait Assistive Device: FWW Exercises Seated Therapy Exercises: Ankle pumps, Sit to stand, Long arc quads, Hip flexion Seated Reps: 20 Treatments Pt in amb TFs from chair and amb out into rader 500' and then amb back to room and TFs back to recliner and performs seated exs. Pt in chair upon departure w/ all needs met and call light nearby. Assessment Current Status: Good Progress Pt required cues for hand and foot placement during TFs and while amb w/ FWW. PT Slip Tender Goals Slip Tender Goals PT Detention Goals Time Frame: Sep 28, 2022 Roll Left & Right (QC): 6 Sit to Lying (QC): 6 Lying-Sitting on Side/Bed(QC): 6 Sit to Stand (QC): 4 (SBA) Chair/Ljm-kl-Bcajn Xfer(QC): 4 (SBA) Toilet Transfer (QC): 4 (SBA) Car Transfer (QC): 4 (SBA) Does the Patient Walk: Yes Walk 10 feet (QC): 4 (SBA) Walk 50ft with 2 Turns (QC): 4 (SBA) Walk 150 ft (QC): 4 (SBA) Walking 10ft on Uneven Surface: 4 (SBA) 1 Step (curb) (QC): 4 (CGA) 4 Steps (QC): 4 (CGA) 12 Steps (QC): 88 Picking up an Object (QC): 4 (SBA using a program admin) Wheel 50 feet with 2 turns (QC: 9 Wheel 150 feet: 9 PT Plan Problem List Problem List: Activity Tolerance, Functional Strength Treatment/Plan Treatment Plan: Continue Plan of Care Treatment Plan: Bed Mobility, Education, Functional Activity Veronica, Functional Strength, Group Therapy, Gait, Safety, Therapeutic Exercise, Transfers Treatment Duration: Sep 28, 2022 Frequency: At least 5 of 7 days/Wk (IRF) Estimated Hrs Per Day: 1.5 hours per day Patient and/or Family Agrees t: Yes Safety Risks/Education Patient Education: Gait Training, Transfer Techniques, Correct Positioning Teaching Recipient: Patient Teaching Methods: Discussion Response to Teaching: Return Demonstration Time Time In: 804 Time Out: 824 DATE: Sep 15, 2022 Total Billed Treatment Time: 20 Total Billed Treatment 1, GT 20 min SHANTELLE CHAVEZ HORSE BREEDER Sep 15, 2022 09:51
--- NOTE | 2022-09-15 12:52 | PM&R Progress Note ---
Subjective HPI/CC On Admission Date Seen by Provider: Sep 15, 2022 Time Seen by Provider: 11:00 Subjective/Events-last exam 09/15/2022: Patient doing well Pain controlled with meds Moving around better Gaining strength Review of Systems General: Fatigue, Malaise Musculoskeletal: back pain Objective Exam Vital Signs Vital Signs Date Time Temp Pulse Resp B/P (MAP) Pulse Ox O2 Delivery O2 Flow Rate FiO2 09/15/22 21:00 Room Air 09/15/22 19:49 36.7 67 16 103/67 (79) 97 Capillary Refill : General Appearance: No Apparent Distress, WD/WN HEENT: PERRL/EOMI, Normal ENT Inspection, Pharynx Normal Neck: Full Range of Motion, Normal Inspection, Non Tender, Supple, Carotid Bruit Respiratory: Chest Non Tender, Lungs Clear, Normal Breath Sounds, No Accessory Muscle Use, No Respiratory Distress Cardiovascular: Regular Rate, Rhythm, No Edema, No Gallop, No JVD, No Murmur, Normal Peripheral Pulses Gastrointestinal: Normal Bowel Sounds, No Organomegaly, No Pulsatile Mass, Non Tender, Soft Back: Normal Inspection, Decreased Range of Motion, Vertebral Tenderness Extremity: Normal Capillary Refill, Normal Inspection, Normal Range of Motion, Non Tender, No Calf Tenderness, No Pedal Edema Neurologic/Psychiatric: Alert, Oriented x3, Normal Mood/Affect, director telecommunications II-XII Norm as Tested, Abnormal Gait, Motor Weakness (bilateral legs) Skin: Normal Color, Warm/Dry Lymphatic: No Adenopathy Results/Procedures Lab Patient resulted labs reviewed. FIM Transfers Therapy Code Descriptions/Definitions Functional [place] Measure: 0=Not Assessed/NA 4=Minimal Assistance 1=Total Assistance 5=Supervision or Setup 2=Maximal Assistance 6=Modified [place] 3=Moderate Assistance 7=Complete IndependenceSCALE: Activities may be completed with or without assistive devices. 8-Tpcwnknurq-zwwcxko completes the activity by him/herself with no assistance from a helper. 5-Set-up or Clean-up Assistance-helper sets up or cleans up; patient completes activity. Cook assists only prior to or following the activity. 4-Supervision or Touching Assistance-helper provides verbal cues and/or touching/steadying and/or contact guard assistance as patient completes activity. Assistance may be provided throughout the activity or intermittently. 3-Partial/Moderate Assistance-helper does LESS THAN HALF the effort. Cook lifts, holds or supports trunk or limbs, but provides less than half the effort. 2-Substantial/Maximal Assistance-helper does MORE THAN HALF the effort. Cook lifts or holds trunk or limbs and provides more than half the effort. 5-Vstxdzdew-cumjxa does ALL the effort. Patient does none of the effort to complete the activity. Or, the assistance of 2 or more helpers is required for the patient to complete the activity. If activity was not attempted, code reason: 7-Patient Refused. 9-Not Applicable-not attempted and the patient did not perform the activity before the current illness, exacerbation or injury. 10-Not Attempted due to Environmental Limitations-(lack of equipment, weather restraints, etc.). 88-Not Attempted due to Medical Conditions or Safety Concerns. Roll Left to Right (QC): 4 Sit to Lying (QC): 4 Sit to Stand (QC): 4 Chair/Cwe-hg-Lvzgx Xfer(QC): 4 Car Transfer (QC): 3 Gait Training Does the Patient Walk?: Yes Distance: 500' Walk 10 feet (QC): 5 Walk 50 ft with 2 Turns(QC): 4 Walk 150 ft (QC): 4 Walking 10ft/uneven surface-QC: 3 Gait Assistive Device: FWW Wheelchair Training Wheel 50 ft with 2 turns (QC): 9 Wheel 150 ft (QC): 9 Stair Training 1 Step (curb) (QC): 88 4 Steps (QC): 88 12 Steps (QC): 88 Balance Picking up an Object (QC): 4 (CGA using a anchor tacker) ADL-Treatment Eating (QC): 6 Oral Hygiene (QC): 6 (seated) Shower/Bathe Self (QC): 4 (CGA in stand with sponge bath) Upper Body Dressing (QC): 3 (Min A with back brace. Set up with shirt.) Lower Body Dressing (QC): 4 (CGA) On/Off Footwear (QC): 3 (Min A with gripper socks.) Toileting Hygiene (QC): 4 (CGA) Assessment/Plan Assessment and Plan Assess & Plan/Chief Complaint Assessment: Lumbar myelopathy s/p lumbar spine surgery POD # 2 h/o kidney stones Post op constipation Elevated AST Leukocytosis likely stress related Post op acute blood loss anemia mild Plan: Monitor pain PT OT Pain control 09/15/2022: Supportive care (1) Lumbar myelopathy NETTIE RAYA DO Sep 15, 2022 12:52
--- NOTE | 2022-09-15 12:52 | Individualized Plan of Care ---
Individualized Plan of Care Rehab Nursing IPOC Order Admission Date Sep 14, 2022 at 13:12 Current Orders Orders Admission Order(Inpt,Obs,Sdc) (09/14/22 11:52) Vital Signs: Per Unit Policy ( 08,16,00 (09/14/22 11:52) Artemio Braun , (09/14/22 11:52) Sequential Compression Device (09/14/22 11:52) Electromyographic Technician-Inpt Rehab Con (09/14/22 11:52) Rehab Nursing Orders-Ipoc (09/14/22 11:52) Physical Therapy Rehab Orders (09/14/22 11:52) Occupational Therapy Rehab Ord (09/14/22 11:52) Speech Therapy Rehab Orders (09/14/22 11:52) Cbc With Automated Diff (09/15/22 06:00) Comprehensive Metabolic Panel (09/15/22 06:00) Precautions (Aru) (09/14/22 11:52) Weekly Weight WEEK (09/14/22 11:52) Rehab-Intensity Of Therapy (09/14/22 11:52) Initiate Admission Nursing Pro .admission (09/14/22 11:52) Alprazolam Tablet (Xanax Tablet) (09/14/22 12:00) Calcium Carbonate Chew Tablet (Antacid C (09/14/22 12:00) Diphenhydramine Tablet (Benadryl Tablet) (09/14/22 12:00) Docusate Sodium Capsule (Colace Capsule) (09/14/22 21:00) Docusate Sodium Capsule (Colace Capsule) (09/14/22 12:00) Bisacodyl Suppository (Dulcolax Supposit (09/14/22 12:00) Lactulose Oral Solution (Enulose Oral So (09/14/22 12:00) Na Phos/Na Biphos Enema (Fleet Enema Celso (09/14/22 12:00) Guaifenesin/Codeine Syrup (Robitussin Ac (09/14/22 12:00) Loperamide Tablet (Imodium Tablet) (09/14/22 12:00) Melatonin Tablet (Melatonin Tablet) (09/14/22 12:00) Polyethylene Glycol Powder Pkt (Miralax (09/14/22 21:00) Ondansetron Oral Dissolve Tab (Zofran (09/14/22 12:00) Senna S Tablet (Senokot S Tablet) (09/14/22 21:00) Acetaminophen Tablet/Caplet (Tylenol T (09/14/22 12:00) Code/Resuscitation (09/14/22 11:52) Initiate Admission Nursing Pro .admission (09/14/22 11:52) Vte Contraindication (09/14/22 11:52) Patient Visit (09/14/22 ) Pt Eval Moderate Complexity (09/14/22 ) Functional Activities, Ea 15 (09/14/22 ) Patient Visit (09/14/22 ) Treat. Speech/Lang/Voice (09/14/22 ) Speech Sound Lang Comp (09/14/22 ) Nursing Communication (Order) (09/14/22 15:08) General/Regular (09/14/22 Dinner) Rx-Cyclobenzaprine Tablet (Rx-Flexeril T (09/14/22 17:00) Hydrocodone/Apap 10/325 Tablet (Lortab 1 (09/14/22 17:00) Cyclobenzaprine Tablet (Flexeril Tablet) (09/14/22 17:30) Patient Visit (09/15/22 ) Gait Training, Ea 15 Min (09/15/22 ) Rehab Nursing Orders: Ongoing Assess. of Cognitive Status, Ongoing Assess. of Function Status, Bladder Management, Bladder Scan, Bladder Training, Bowel Management, Bowel Training, Disease Management & Educaiton, DVT Prophylaxis, F all Prevention, Fluid/Electrolyte/Nutrition Mgmt, Infection Prevention, Medication Management & Education, Management of Risks & Complications, Nutrition Management, Pain Management, Patient/Family Support, Safety Management, Wound Management Intensity of Therapy to be met Patient to be seen: Min.3h per day/5 of 7d PT IPOC Problem List: Activity Tolerance, Functional Strength Treatment Plan: Continue Plan of Care Bed Mobility, Education, Functional Activity Veronica, Functional Strength, Group Therapy, Gait, Safety, Therapeutic Exercise, Transfers Treatment Duration: Sep 28, 2022 Frequency: At least 5 of 7 days/Wk (IRF) Estimated Hrs Per Day: 1.5 hours per day OT IPOC Problems: Decreased Activ Tolerance, Impaired Funct Balance, Impaired I ADL's, Impaired Self-Care Skills OT Treatment, Training and Edu: Yes Plan of Care: ADL Retraining, Functional Mobility, Group Exercise/Act as Ind, UE Funct Exercise/Act Treatment Duration: Oct 05, 2022 Frequency: At least 5 of 7 days/Wk (IRF) Estimated Hrs Per Day: 1.[address] IPOC Speech Therapy Treatment Plan: Discontinue ST Treatment Duration: Sep 14, 2022 Frequency: 1 time per week Estimated Hrs Per Day: .25 hour per day Electromyographic Technician/Case Mgmt Electromyographic Technician/Case Managemen: Discharge Planning Dietitian/Weight Caller Dietitian/Weight Caller to monitor nutritional status and make changes and/or recommendations as needed and work with speech pathology on dietary upgrades as the occur. Physician IPOC Medical Issues being managed closely and that require the 24 hour availability of a physician: Recent lumbar spine surgery with slow recovery and severe pain and increased fall risk and lives alone needs close monitoring for any decompensation Medical Issues: Bowel/Bladder Function, DVT Prophylaxis, Falls Precautions, Fluid/Electrolyte/Nutrition Balance, Infection Protection, Pain Management, Wound Care Brief Synthesis of Preadmission Screen, Post-Admission Evaluation, and Therapy Evaluations: PT OT will focus on regaining function with use of AD in order to regain stamina and decrease fall risk in order to return home to live independently Medical Prognosis: Good Anticipated Length of Stay: 6 days NETTIE RAYA DO Sep 15, 2022 12:52
[2022-09-15 19:49] VITALS: BP 103/67
[2022-09-16 07:20] VITALS: BP 110/70
--- NOTE | 2022-09-16 07:34 | PM&R Progress Note ---
Subjective HPI/CC On Admission Date Seen by Provider: Sep 16, 2022 Time Seen by Provider: 12:00 Subjective/Events-last exam 09/16/2022: Improved status Cousin at bedside and all questions are answered Moving around well Working on transfers 09/15/2022: Patient doing well Pain controlled with meds Moving around better Gaining strength Review of Systems General: Fatigue, Malaise Objective Exam Vital Signs Vital Signs Date Time Temp Pulse Resp B/P (MAP) Pulse Ox O2 Delivery O2 Flow Rate FiO2 09/16/22 08:10 Room Air 09/16/22 07:20 36.5 70 18 110/70 (83) 97 Capillary Refill : General Appearance: No Apparent Distress, WD/WN HEENT: PERRL/EOMI, Normal ENT Inspection, Pharynx Normal Neck: Full Range of Motion, Normal Inspection, Non Tender, Supple, Carotid Br uit Respiratory: Chest Non Tender, Lungs Clear, Normal Breath Sounds, No Accessory Muscle Use, No Respiratory Distress Cardiovascular: Regular Rate, Rhythm, No Edema, No Gallop, No JVD, No Murmur, Normal Peripheral Pulses Gastrointestinal: Normal Bowel Sounds, No Organomegaly, No Pulsatile Mass, Non Tender, Soft Back: Normal Inspection, Decreased Range of Motion, Vertebral Tenderness Extremity: Normal Capillary Refill, Normal Inspection, Normal Range of Motion, Non Tender, No Calf Tenderness, No Pedal Edema Neurologic/Psychiatric: Alert, Oriented x3, Normal Mood/Affect, livestock trader II-XII Norm as Tested, Abnormal Gait, Motor Weakness (bilateral legs) Skin: Normal Color, Warm/Dry Lymphatic: No Adenopathy Results/Procedures Lab Patient resulted labs reviewed. FIM Transfers Therapy Code Descriptions/Definitions Functional [place] Measure: 0=Not Assessed/NA 4=Minimal Assistance 1=Total Assistance 5=Supervision or Setup 2=Maximal Assistance 6=Modified [place] 3=Moderate Assistance 7=Complete IndependenceSCALE: Activities may be completed with or without assistive devices. 3-Golevbnacs-sfpablc completes the activity by him/herself with no assistance from a helper. 5-Set-up or Clean-up Assistance-helper sets up or cleans up; patient completes activity. [place] assists only prior to or following the activity. 4-Supervision or Touching Assistance-helper provides verbal cues and/or touching/steadying and/or contact guard assistance as patient completes activity. Assistance may be provided throughout the activity or intermittently. 3-Partial/Moderate Assistance-helper does LESS THAN HALF the effort. [place] lifts, holds or supports trunk or limbs, but provides less than half the effort. 2-Substantial/Maximal Assistance-helper does MORE THAN HALF the effort. [place] lifts or holds trunk or limbs and provides more than half the effort. 3-Setcsdluh-kgwpkj does ALL the effort. Patient does none of the effort to complete the activity. Or, the assistance of 2 or more helpers is required for the patient to complete the activity. If activity was not attempted, code reason: 7-Patient Refused. 9-Not Applicable-not attempted and the patient did not perform the activity before the current illness, exacerbation or injury. 10-Not Attempted due to Environmental Limitations-(lack of equipment, weather restraints, etc.). 88-Not Attempted due to Medical Conditions or Safety Concerns. Roll Left to Right (QC): 4 Sit to Lying (QC): 4 Sit to Stand (QC): 4 Chair/Jul-cx-Ijzyk Xfer(QC): 4 Car Transfer (QC): 3 Gait Training Does the Patient Walk?: Yes Distance: 500' Walk 10 feet (QC): 5 Walk 50 ft with 2 Turns(QC): 4 Walk 150 ft (QC): 4 Walking 10ft/uneven surface-QC: 3 Gait Assistive Device: FWW Wheelchair Training Wheel 50 ft with 2 turns (QC): 9 Wheel 150 ft (QC): 9 Stair Training 1 Step (curb) (QC): 88 4 Steps (QC): 88 12 Steps (QC): 88 Balance Picking up an Object (QC): 4 (CGA using a radiology ct technologist) ADL-Treatment Eating (QC): 6 Oral Hygiene (QC): 6 (seated) Shower/Bathe Self (QC): 4 (CGA in stand with sponge bath) Upper Body Dressing (QC): 3 (Min A with back brace. Set up with shirt.) Lower Body Dressing (QC): 4 (CGA) On/Off Footwear (QC): 3 (Min A with gripper socks.) Toileting Hygiene (QC): 4 (CGA) Assessment/Plan Assessment and Plan Assess & Plan/Chief Complaint Assessment: Lumbar myelopathy s/p lumbar spine surgery POD # 3 h/o kidney stones Post op constipation Elevated AST Leukocytosis likely stress related Post op acute blood loss anemia mild Plan: Monitor pain PT OT Pain control 09/15/2022: Supportive care 09/16/2022: Monitor pain (1) Lumbar myelopathy NETTIE RAYA DO Sep 16, 2022 07:34
[2022-09-16] MEDS: DOCUSATE SODIUM 100 MG (COLACE) CAP PO SCH ×2 (09:01→21:50)
[2022-09-16] MEDS: SENNA W/DOCUSATE (SENOKOT S) TABLET PO SCH ×2 (09:01→21:50)
[2022-09-16] MEDS: polyethylene glycoL POWDER 17 GM (MIRALAX) PACK PO SCH ×2 (11:08→21:30)
[2022-09-16 20:00] VITALS: BP 109/67
--- NOTE | 2022-09-17 05:09 | PM&R Progress Note ---
Subjective HPI/CC On Admission Date Seen by Provider: Sep 17, 2022 Time Seen by Provider: 08:30 Subjective/Events-last exam 09/17/2022: Improved overall Wants to DC soon No major concerns 09/16/2022: Improved status Cousin at bedside and all questions are answered Moving around well Working on transfers 09/15/2022: Patient doing well Pain controlled with meds Moving around better Gaining strength Review of Systems General: Fatigue, Malaise Objective Exam Vital Signs Vital Signs Date Time Temp Pulse Resp B/P (MAP) Pulse Ox O2 Delivery O2 Flow Rate FiO2 09/17/22 20:54 36.6 72 18 126/83 (97) 96 Room Air Capillary Refill : General Appearance: No Apparent Distress, WD/WN HEENT: PERRL/EOMI, Normal ENT Inspection, Pharynx Normal Neck: Full Range of Motion, Normal Inspection, Non Tender, Supple, Carotid Bruit Respiratory: Chest Non Tender, Lungs Clear, Normal Breath Sounds, No Accessory Muscle Use, No Respiratory Distress Cardiovascular: Regular Rate, Rhythm, No Edema, No Gallop, No JVD, No Murmur, Normal Peripheral Pulses Gastrointestinal: Normal Bowel Sounds, No Organomegaly, No Pulsatile Mass, Non Tender, Soft Back: Normal Inspection, Decreased Range of Motion, Vertebral Tenderness Extremity: Normal Capillary Refill, Normal Inspection, Normal Range of Motion, Non Tender, No Calf Tenderness, No Pedal Edema Neurologic/Psychiatric: Alert, Oriented x3, Normal Mood/Affect, elementary school social worker II-XII Norm as Tested, Abnormal Gait, Motor Weakness (bilateral legs) Skin: Normal Color, Warm/Dry Lymphatic: No Adenopathy Results/Procedures Lab Laboratory Tests 09/17/22 05:59 Patient resulted labs reviewed. FIM Transfers Therapy Code Descriptions/Definitions Functional [place] Measure: 0=Not Assessed/NA 4=Minimal Assistance 1=Total Assistance 5=Supervision or Setup 2=Maximal Assistance 6=Modified [place] 3=Moderate Assistance 7=Complete IndependenceSCALE: Activities may be completed with or without assistive devices. 1-Tygzucerxk-vzfyhgl completes the activity by him/herself with no assistance from a helper. 5-Set-up or Clean-up Assistance-helper sets up or cleans up; patient completes activity. [place] assists only prior to or following the activity. 4-Supervision or Touching Assistance-helper provides verbal cues and/or touching/steadying and/or contact guard assistance as patient completes activity. Assistance may be provided throughout the activity or intermittently. 3-Partial/Moderate Assistance-helper does LESS THAN HALF the effort. [place] lifts, holds or supports trunk or limbs, but provides less than half the effort. 2-Substantial/Maximal Assistance-helper does MORE THAN HALF the effort. [place] lifts or holds trunk or limbs and provides more than half the effort. 1-Gtmaxvdfi-igazin does ALL the effort. Patient does none of the effort to complete the activity. Or, the assistance of 2 or more helpers is required for the patient to complete the activity. If activity was not attempted, code reason: 7-Patient Refused. 9-Not Applicable-not attempted and the patient did not perform the activity before the current illness, exacerbation or injury. 10-Not Attempted due to Environmental Limitations-(lack of equipment, weather restraints, etc.). 88-Not Attempted due to Medical Conditions or Safety Concerns. Roll Left to Right (QC): 4 Sit to Lying (QC): 4 Sit to Stand (QC): 4 Chair/Zft-zn-Tdsvx Xfer(QC): 4 Car Transfer (QC): 3 Gait Training Does the Patient Walk?: Yes Distance: 500' Walk 10 feet (QC): 5 Walk 50 ft with 2 Turns(QC): 4 Walk 150 ft (QC): 4 Walking 10ft/uneven surface-QC: 3 Gait Assistive Device: FWW Wheelchair Training Wheel 50 ft with 2 turns (QC): 9 Wheel 150 ft (QC): 9 Stair Training 1 Step (curb) (QC): 88 4 Steps (QC): 88 12 Steps (QC): 88 Balance Picking up an Object (QC): 4 (CGA using a district ranger) ADL-Treatment Eating (QC): 6 Oral Hygiene (QC): 6 (seated) Shower/Bathe Self (QC): 4 (CGA in stand with sponge bath) Upper Body Dressing (QC): 3 (Min A with back brace. Set up with shirt.) Lower Body Dressing (QC): 4 (CGA) On/Off Footwear (QC): 3 (Min A with gripper socks.) Toileting Hygiene (QC): 4 (CGA) Assessment/Plan Assessment and Plan Assess & Plan/Chief Complaint Assessment: Lumbar myelopathy s/p lumbar spine surgery POD # 4 h/o kidney stones Post op constipation Elevated AST Leukocytosis likely stress related Post op acute blood loss anemia mild Plan: Monitor pain PT OT Pain control 09/15/2022: Supportive care 09/16/2022: Monitor pain 09/17/2022: Labs improved Continue aggressive therapy (1) Lumbar myelopathy NETTIE RAYA DO Sep 17, 2022 05:09
[2022-09-17 06:08] LABS: BASOPHILS % (AUTO) 0 % (0-10); EOSINOPHILS # (AUTO) 0.1 10^3/uL (0.0-0.3); EOSINOPHILS % (AUTO) 1 % (0-10); HEMATOCRIT 37 % (40-54); HEMOGLOBIN 12.2 g/dL (13.3-17.7); LYMPHOCYTES # (AUTO) 1.7 10^3/uL (1.0-4.0); LYMPHOCYTES % (AUTO) 19 % (12-44); MEAN CORPUSCULAR HEMOGLOBIN 31 pg (25-34); MEAN CORPUSCULAR HGB CONC 33 g/dL (32-36); MEAN CORPUSCULAR VOLUME 94 fL (80-99); MEAN PLATELET VOLUME 9.6 fL (9.0-12.2); MONOCYTES # (AUTO) 0.8 10^3/uL (0.0-1.0); MONOCYTES % (AUTO) 10 % (0-12); NEUTROPHILS # (AUTO) 6.2 10^3/uL (1.8-7.8); NEUTROPHILS % (AUTO) 70 % (42-75); PLATELET COUNT 198 10^3/uL (130-400); WHITE BLOOD COUNT 8.9 10^3/uL (4.3-11.0)
[2022-09-17 06:25] LABS: ALBUMIN 3.7 GM/DL (3.2-4.5); POTASSIUM 3.8 MMOL/L (3.6-5.0)
[2022-09-17 06:27] LABS: TOTAL PROTEIN 7.1 GM/DL (6.4-8.2)
[2022-09-17 06:29] LABS: BILIRUBIN,TOTAL 1.5 MG/DL (0.1-1.0)
[2022-09-17 06:31] LABS: CREATININE SERUM 0.85 MG/DL (0.60-1.30)
[2022-09-17 07:21] VITALS: BP 126/73
[2022-09-17] MEDS: DOCUSATE SODIUM 100 MG (COLACE) CAP PO SCH ×2 (07:47→20:25)
[2022-09-17] MEDS: SENNA W/DOCUSATE (SENOKOT S) TABLET PO SCH ×2 (07:53→20:25)
[2022-09-17] MEDS: polyethylene glycoL POWDER 17 GM (MIRALAX) PACK PO SCH ×2 (07:53→20:25)
--- NOTE | 2022-09-17 09:39 | Physical Therapy Daily Note ---
PT Daily Note-Current Subjective Pt sitting in recliner upon arrival. Pt agrees to PT. Pain Location: No Pain Reported Section J - Health Conditions 1. Rarely or not at all 2. Occasionally 3. Frequently 4. Almost constantly 8. Unable to answer Pain Effect on Sleep: 2 Pain Interference with Therapy: 2 Pain Interference w/Day-to-Day: 2 Mental Status Patient Orientation: Person, Place, Time, Situation Attachments: Other-See Comments (TLSO Back Brace) Transfers SCALE: Activities may be completed with or without assistive devices. 9-Mbgdbpoarp-nuxgrzp completes the activity by him/herself with no assistance from a helper. 5-Set-up or Clean-up Assistance-helper sets up or cleans up; patient completes activity. Jay assists only prior to or following the activity. 4-Supervision or Touching Assistance-helper provides verbal cues and/or touching/steadying and/or contact guard assistance as patient completes activity. Assistance may be provided throughout the activity or intermittently. 3-Partial/Moderate Assistance-helper does LESS THAN HALF the effort. Jay lifts, holds or supports trunk or limbs, but provides less than half the effort. 2-Substantial/Maximal Assistance-helper does MORE THAN HALF the effort. Jay lifts or holds trunk or limbs and provides more than half the effort. 1-Khcvnjjwb-aajbjm does ALL the effort. Patient does none of the effort to complete the activity. Or, the assistance of 2 or more helpers is required for the patient to complete the activity. If activity was not attempted, code reason: 7-Patient Refused. 9-Not Applicable-not attempted and the patient did not perform the activity before the current illness, exacerbation or injury. 10-Not Attempted due to Environmental Limitations-(lack of equipment, weather restraints, etc.). 88-Not Attempted due to Medical Conditions or Safety Concerns. Sit to Stand (QC): 4 Toilet Transfer (QC): 4 Weight Bearing Full Weight Bearing Full Weight Bearing back precautions and restricted lifting Gait Training Does the Patient Walk?: Yes Distance: 600' Walk 10 feet (QC): 5 Walk 50 ft with 2 Turns(QC): 5 Walk 150 ft (QC): 5 Gait Assistive Device: FWW Pt's foot drag/clearance is improving, takes more focus than before but able to complete until fatigued. Exercises Seated Therapy Exercises: Ankle pumps, Long arc quads, Hip flexion, Hip abd/add, Glut set Seated Reps: 15 NuStep Minutes: 15 NuStep Workload: 5 Treatments TF to standing and amb to BR. After finishing, pt amb in hallway. Pt is issued and completes Seated Ex then uses NuStep. After RB, pt amb in hallway then returns to room to use BR and rest in recliner before OT. All needs met,call light in hand. Assessment Current Status: Good Progress Pt is gaining strength and activity tolerance. Pt is walking better w/less foot drag and improved transfers. PT Nursing Student Goals Nursing Student Goals PT Detention Goals Time Frame: Sep 28, 2022 Roll Left & Right (QC): 6 Sit to Lying (QC): 6 Lying-Sitting on Side/Bed(QC): 6 Sit to Stand (QC): 4 (SBA) Chair/Tyc-xz-Lihdv Xfer(QC): 4 (SBA) Toilet Transfer (QC): 4 (SBA) Car Transfer (QC): 4 (SBA) Does the Patient Walk: Yes Walk 10 feet (QC): 4 (SBA) Walk 50ft with 2 Turns (QC): 4 (SBA) Walk 150 ft (QC): 4 (SBA) Walking 10ft on Uneven Surface: 4 (SBA) 1 Step (curb) (QC): 4 (CGA) 4 Steps (QC): 4 (CGA) 12 Steps (QC): 88 Picking up an Object (QC): 4 (SBA using a revising clerk) Wheel 50 feet with 2 turns (QC: 9 Wheel 150 feet: 9 PT Plan Problem List Problem List: Activity Tolerance Treatment/Plan Treatment Plan: Continue Plan of Care Treatment Plan: Bed Mobility, Education, Functional Activity Veronica, Functional Strength, Group Therapy, Gait, Safety, Therapeutic Exercise, Transfers Treatment Duration: Sep 28, 2022 Frequency: At least 5 of 7 days/Wk (IRF) Estimated Hrs Per Day: 1.5 hours per day Patient and/or Family Agrees t: Yes Safety Risks/Education Patient Education: Transfer Techniques, Issued Written HEP, Reviewed Don/Doff Brace Teaching Recipient: Patient Teaching Methods: Demonstration, Discussion Response to Teaching: Verbalize Understanding, Return Demonstration Time Time In: 800 Time Out: 930 DATE: Sep 17, 2022 Total Billed Treatment Time: 90 Total Billed Treatment 1, GT x2 (30m), EX x2 (30m) & FA x2 (30m) JUNIOR GALLE[employer] SUPERVISOR [employer] Sep 17, 2022 09:39
--- NOTE | 2022-09-17 10:01 | Occupational Ther Daily Note ---
OT Current Status-Daily Note Subjective Pt up in recliner, agreeable to OT Tx. Pt feels like he is ready to discharge. Mental Status/Objective Patient Orientation: Normal For Age ADL-Treatment Therapy Code Descriptions/Definitions Functional [place] Measure: 0=Not Assessed/NA 4=Minimal Assistance 1=Total Assistance 5=Supervision or Setup 2=Maximal Assistance 6=Modified [place] 3=Moderate Assistance 7=Complete IndependenceSCALE: Activities may be completed with or without assistive devices. 6-Qsrhmwudxi-hjwkmnx completes the activity by him/herself with no assistance from a helper. 5-Set-up or Clean-up Assistance-helper sets up or cleans up; patient completes activity. [place] assists only prior to or following the activity. 4-Supervision or Touching Assistance-helper provides verbal cues and/or touching/steadying and/or contact guard assistance as patient completes activity. Assistance may be provided throughout the activity or intermittently. 3-Partial/Moderate Assistance-helper does LESS THAN HALF the effort. [place] lifts, holds or supports trunk or limbs, but provides less than half the effort. 2-Substantial/Maximal Assistance-helper does MORE THAN HALF the effort. [place] lifts or holds trunk or limbs and provides more than half the effort. 4-Gapswigzt-obhbkf does ALL the effort. Patient does none of the effort to complete the activity. Or, the assistance of 2 or more helpers is required for the patient to complete the activity. If activity was not attempted, code reason: 7-Patient Refused. 9-Not Applicable-not attempted and the patient did not perform the activity before the current illness, exacerbation or injury. 10-Not Attempted due to Environmental Limitations-(lack of equipment, weather restraints, etc.). 88-Not Attempted due to Medical Conditions or Safety Concerns. Eating (QC): 6 Oral Hygiene (QC): 6 Toileting Hygiene (QC): 6 Toilet Transfer (QC): 6 Other Treatment Pt up in recliner, agreeable to OT Tx. Pt used FWW to perform functional mobil ity to therapy gym, SBA. OT tx focused on increasing BUE Strength and activity tolerance. Pt completed UE reaching task, placing/removing 1" pegs from foam pegboard, alternating hands, 1lb wrist weights bilaterally. Pt then completed arm bike, no resistance x15 mins, no rest breaks. Pt completed UE reaching task, placing/removing nuts/bolts from block. Pt able to complete x32 total. Pt used FWW to return to his room, CGA-SBA. Pt completed toileting independently, then transferred to recliner. Post tx, pt in recliner, call light in reach and all needs met. Education OT Patient Education: Correct positioning, Energy conservation, Modified ADL techniques, Progress toward Goal/Update tx plan, Purpose of tx/functional activities, Rehab process Teaching Recipient: Patient Teaching Methods: Discussion Response to Teaching: Verbalize Understanding OT Short Term Goals Short Term Goals Time Frame: Sep 26, 2022 Upper body dressin Lower body dressin Putting on/taking off footwear: 5 OT [facility] Goals Attorney At [employer] Goals Time Frame: Oct 05, 2022 Acute change in mental status: 0 Inattention: 0 Disorganized thinkin Altered level of consciousness: 0 Eating (QC): 6 Oral Hygiene (QC): 6 Toileting Hygiene (QC): 6 Shower/Bathe Self (QC): 5 Upper Body Dressing (QC): 6 Lower Body Dressing (QC): 6 On/Off Footwear (QC): 6 Additional Goals: 1-Demonstrate ADL Tasks, 2-Verbalize Understanding, 3- ImproveStrength/Veronica 1=Demonstrate adherence to instructed precautions during ADL tasks. 2=Patient will verbalize/demonstrate understanding of assistive devices/modifications for ADL. 3=Patient will improve strength/tolerance for activity to enable patient to perform ADL's. OT Education/Plan Problem List/Assessment Assessment: Decreased Activ Tolerance, Decreased UE Strength, Impaired Funct Balance, Impaired I ADL's, Impaired Self-Care Skills Discharge Recommendations Plan/Recommendations: Continue POC Treatment Plan/Plan of Care Patient would benefit from OT for education, treatment and training to promote independence in ADL's, mobility, safety and/or upper extremity function for ADL's. Plan of Care: ADL Retraining, Functional Mobility, Group Exercise/Act as Ind, UE Funct Exercise/Act Treatment Duration: Oct 05, 2022 Frequency: At least 5 of 7 days/Wk (IRF) Estimated Hrs Per Day: 1.5 hours per day Agreement: Yes Rehab Potential: Fair Time Start Time: 09:30 Stop Time: 11:00 DATE: Sep 17, 2022 Total Time Billed (hr/min): 90 Billed Treatment Time 1, ADL (15'), EX (15'), FA 4 (60') ARUN VALLE OT Sep 17, 2022 10:01
--- NOTE | 2022-09-17 12:05 | Physical Therapy Progress Note ---
Therapy Progress Note Patient has a mobility limitation that significantly impairs his ability to participate in one or more mobility-related activities of daily living (MRADL) in home. Patient is able to safely use the front wheeled walker and the functional mobility deficit can be sufficiently resolved with use of a front wheeled walker. This cannot be achieved with the use of any other equipment such as other types of walkers or canes. JUNIOR [employer] Sep 17, 2022 12:05
[2022-09-17 20:54] VITALS: BP 126/83
[2022-09-18 07:03] VITALS: BP 126/83
--- NOTE | 2022-09-18 07:15 | PM&R Progress Note ---
Subjective HPI/CC On Admission Date Seen by Provider: Sep 18, 2022 Time Seen by Provider: 08:30 Subjective/Events-last exam 09/18/2022: Doing well Ready for DC Pain controlled 09/17/2022: Improved overall Wants to DC soon No major concerns 09/16/2022: Improved status Cousin at bedside and all questions are answered Moving around well Working on transfers 09/15/2022: Patient doing well Pain controlled with meds Moving around better Gaining strength Review of Systems General: Fatigue, Malaise Objective Exam Vital Signs Vital Signs Date Time Temp Pulse Resp B/P (MAP) Pulse Ox O2 Delivery O2 Flow Rate FiO2 09/18/22 20:37 Room Air 09/18/22 20:08 36.6 95 16 109/71 (84) 99 Capillary Refill : General Appearance: No Apparent Distress, WD/WN HEENT: PERRL/EOMI, Normal ENT Inspection, Pharynx Normal Neck: Full Range of Motion, Normal Inspection, Non Tender, Supple, Carotid Bruit Respiratory: Chest Non Tender, Lungs Clear, Normal Breath Sounds, No Accessory Muscle Use, No Respiratory Distress Cardiovascular: Regular Rate, Rhythm, No Edema, No Gallop, No JVD, No Murmur, Normal Peripheral Pulses Gastrointestinal: Normal Bowel Sounds, No Organomegaly, No Pulsatile Mass, Non Tender, Soft Back: Normal Inspection, Decreased Range of Motion, Vertebral Tenderness Extremity: Normal Capillary Refill, Normal Inspection, Normal Range of Motion, Non Tender, No Calf Tenderness, No Pedal Edema Neurologic/Psychiatric: Alert, Oriented x3, Normal Mood/Affect, sifter operator II-XII Norm as Tested, Abnormal Gait, Motor Weakness (bilateral legs) Skin: Normal Color, Warm/Dry Lymphatic: No Adenopathy Results/Procedures Lab Patient resulted labs reviewed. FIM Transfers Therapy Code Descriptions/Definitions Functional [place] Measure: 0=Not Assessed/NA 4=Minimal Assistance 1=Total Assistance 5=Supervision or Setup 2=Maximal Assistance 6=Modified [place] 3=Moderate Assistance 7=Complete IndependenceSCALE: Activities may be completed with or without assistive devices. 5-Sjggwwwvip-dyumjwz completes the activity by him/herself with no assistance from a helper. 5-Set-up or Clean-up Assistance-helper sets up or cleans up; patient completes activity. [place] assists only prior to or following the activity. 4-Supervision or Touching Assistance-helper provides verbal cues and/or touching/steadying and/or contact guard assistance as patient completes activity. Assistance may be provided throughout the activity or intermittently. 3-Partial/Moderate Assistance-helper does LESS THAN HALF the effort. [place] lifts, holds or supports trunk or limbs, but provides less than half the effort. 2-Substantial/Maximal Assistance-helper does MORE THAN HALF the effort. [place] lifts or holds trunk or limbs and provides more than half the effort. 4-Atswlnuqe-wajdax does ALL the effort. Patient does none of the effort to complete the activity. Or, the assistance of 2 or more helpers is required for the patient to complete the activity. If activity was not attempted, code reason: 7-Patient Refused. 9-Not Applicable-not attempted and the patient did not perform the activity before the current illness, exacerbation or injury. 10-Not Attempted due to Environmental Limitations-(lack of equipment, weather restraints, etc.). 88-Not Attempted due to Medical Conditions or Safety Concerns. Roll Left to Right (QC): 4 Sit to Lying (QC): 4 Sit to Stand (QC): 4 Chair/Rqn-jv-Ppiul Xfer(QC): 4 Car Transfer (QC): 3 Gait Training Does the Patient Walk?: Yes Distance: 600' Walk 10 feet (QC): 5 Walk 50 ft with 2 Turns(QC): 5 Walk 150 ft (QC): 5 Walking 10ft/uneven surface-QC: 3 Gait Assistive Device: FWW Wheelchair Training Wheel 50 ft with 2 turns (QC): 9 Wheel 150 ft (QC): 9 Stair Training 1 Step (curb) (QC): 88 4 Steps (QC): 88 12 Steps (QC): 88 Balance Picking up an Object (QC): 4 (CGA using a relief worker) ADL-Treatment Eating (QC): 6 Oral Hygiene (QC): 6 Shower/Bathe Self (QC): 4 (CGA in stand with sponge bath) Upper Body Dressing (QC): 3 (Min A with back brace. Set up with shirt.) Lower Body Dressing (QC): 4 (CGA) On/Off Footwear (QC): 3 (Min A with gripper socks.) Toileting Hygiene (QC): 6 Toilet Transfer (QC): 6 Assessment/Plan Assessment and Plan Assess & Plan/Chief Complaint Assessment: Lumbar myelopathy s/p lumbar spine surgery POD # 5 h/o kidney stones Post op constipation Elevated AST Leukocytosis likely stress related Post op acute blood loss anemia mild Plan: Monitor pain PT OT Pain control 09/15/2022: Supportive care 09/16/2022: Monitor pain 09/17/2022: Labs improved Continue aggressive therapy 09/18/2022: DC planned (1) Lumbar myelopathy NETTIE RAYA DO Sep 18, 2022 07:15
[2022-09-18] MEDS: polyethylene glycoL POWDER 17 GM (MIRALAX) PACK PO SCH ×2 (08:09→19:39)
[2022-09-18] MEDS: DOCUSATE SODIUM 100 MG (COLACE) CAP PO SCH ×2 (08:09→19:39)
[2022-09-18] MEDS: SENNA W/DOCUSATE (SENOKOT S) TABLET PO SCH ×2 (08:09→19:39)
--- NOTE | 2022-09-18 08:32 | Occupational Ther Daily Note ---
OT Current Status-Daily Note Subjective Pt up in recliner, agreeable to OT Tx with focus on ADLs. Pt reports he feels ready to discharge home. Mental Status/Objective Patient Orientation: Normal For Age ADL-Treatment Therapy Code Descriptions/Definitions Functional [place] Measure: 0=Not Assessed/NA 4=Minimal Assistance 1=Total Assistance 5=Supervision or Setup 2=Maximal Assistance 6=Modified [place] 3=Moderate Assistance 7=Complete IndependenceSCALE: Activities may be completed with or without assistive devices. 1-Auzwdrcath-ajqfazm completes the activity by him/herself with no assistance from a helper. 5-Set-up or Clean-up Assistance-helper sets up or cleans up; patient completes activity. [place] assists only prior to or following the activity. 4-Supervision or Touching Assistance-helper provides verbal cues and/or touching/steadying and/or contact guard assistance as patient completes activity. Assistance may be provided throughout the activity or intermittently. 3-Partial/Moderate Assistance-helper does LESS THAN HALF the effort. [place] lifts, holds or supports trunk or limbs, but provides less than half the effort. 2-Substantial/Maximal Assistance-helper does MORE THAN HALF the effort. [place] lifts or holds trunk or limbs and provides more than half the effort. 9-Ktupezwky-qcthmm does ALL the effort. Patient does none of the effort to complete the activity. Or, the assistance of 2 or more helpers is required for the patient to complete the activity. If activity was not attempted, code reason: 7-Patient Refused. 9-Not Applicable-not attempted and the patient did not perform the activity before the current illness, exacerbation or injury. 10-Not Attempted due to Environmental Limitations-(lack of equipment, weather restraints, etc.). 88-Not Attempted due to Medical Conditions or Safety Concerns. Eating (QC): 6 Oral Hygiene (QC): 6 Shower/Bathe Self (QC): 5 (set up to cover dressing on back prior to shower.) Upper Body Dressing (QC): 6 Lower Body Dressing (QC): 6 On/Off Footwear: 6 Toileting Hygiene (QC): 6 Other Treatment [id number]: Pt in recliner, used FWW to gather clothes from closet, then transfer into bathroom for ADLS. OT provided education on safety with walker and how to carry objects while using a walker. Pt attempted to leave walker behind and "furniture/wall walk" requiring VCs to keep walker with him. Pt completed showering, dressing, and grooming tasks as listed above. Pt used FWW to perform functional mobility to therapy gym, SBA with occasional CGA. OT Tx focused on increasing BUE Strength and activity tolerance. Pt completed arm bike, x15 mins, no resistance, no rest breaks. [id number] OT/PT cotreat due to skill of 2 clinicians required which a rehabilitation case coordinator could not perform in order to coordinate UE/LEs, decrease fall risk, focus on higher level balance tasks, and due to pt's limitations in mobility, dynamic balance, and LE weakness. OT focused on UE placement and cues for sequencing and safety. PT focused on LE placement, gross overall movement, transfers/mobility, and dynamic standing balance. Pt stood at FWW, removed graded clothespins from around waistline to simulate dynamic balance required with clothing management. Pt completed with no LOB. Pt then completed UE reaching task, batting balloon back and forth with OT as PT focused on dynamic balance. Pt able to let go of walker with both hands during task, no LOB noted, SBA during task. Post tx, pt in therapy gym with PT, all needs met. Education OT Patient Education: Correct positioning, Energy conservation, Modified ADL techniques, Progress toward Goal/Update tx plan, Purpose of tx/functional activities, Rehab process Teaching Recipient: Patient Teaching Methods: Discussion Response to Teaching: Verbalize Understanding BIMS CAM BIMS Expression of Ideas and Wants: Without Difficulty Understanding Verbal Content: Understands Brief Interview/Mental Status: Yes IRF GRECIA BIMS: IRF GRECIA BIMS Response (Comments) Value Repitition of Three Words Three 3 Recalls Socks Yes, No Cue Required 2 Recalls Blue Yes, No Cue Required 2 Recalls Bed Yes, No Cue Required 2 Year Correct 3 Month Accurate Within 5 Days 2 Day Correct 1 Total 15 CAM Mental Status Change/Baseline: 0 Inattention: 0 Disorganized thinkin Altered level of consciousness: 0 OT Short Term Goals Short Term Goals Time Frame: Sep 26, 2022 Upper body dressin Lower body dressin Putting on/taking off footwear: 5 OT Receiving Associate Store Goals Receiving Associate Store Goals Time Frame: Oct 05, 2022 Acute change in mental status: 0 Inattention: 0 Disorganized thinkin Altered level of consciousness: 0 Eating (QC): 6 (met) Oral Hygiene (QC): 6 (met) Toileting Hygiene (QC): 6 (met) Shower/Bathe Self (QC): 5 (met) Upper Body Dressing (QC): 6 (met) Lower Body Dressing (QC): 6 (met) On/Off Footwear (QC): 6 (met) Additional Goals: 1-Demonstrate ADL Tasks, 2-Verbalize Understanding, 3- ImproveStrength/Veronica 1=Demonstrate adherence to instructed precautions during ADL tasks. 2=Patient will verbalize/demonstrate understanding of assistive devices/modifications for ADL. 3=Patient will improve strength/tolerance for activity to enable patient to perform ADL's. OT Education/Plan Problem List/Assessment Assessment: Decreased Activ Tolerance, Decreased UE Strength Discharge Recommendations Plan/Recommendations: Continue POC Treatment Plan/Plan of Care Patient would benefit from OT for education, treatment and training to promote independence in ADL's, mobility, safety and/or upper extremity function for ADL's. Plan of Care: ADL Retraining, Functional Mobility, Group Exercise/Act as Ind, UE Funct Exercise/Act Treatment Duration: Oct 05, 2022 Frequency: At least 5 of 7 days/Wk (IRF) Estimated Hrs Per Day: 1.5 hours per day Agreement: Yes Rehab Potential: Fair Time Start Time: 08:00 Stop Time: 09:30 DATE: Sep 18, 2022 Total Time Billed (hr/min): 90 Billed Treatment Time OT tx x60', [place] x30' 1, ADL 3 (45'), EX (15'), FA 2 (30') ARUN VALLE OT Sep 18, 2022 08:32
--- NOTE | 2022-09-18 11:39 | Physical Therapy Daily Note ---
PT Daily Note-Current Subjective Pt sitting in Therapy Gym working w/OT upon arrival. Pt agrees to PT/OT short co-treat for higher level balance work. Pain Section J - Health Conditions 1. Rarely or not at all 2. Occasionally 3. Frequently 4. Almost constantly 8. Unable to answer Pain Effect on Sleep: 2 Pain Interference with Therapy: 2 Pain Interference w/Day-to-Day: 2 Transfers SCALE: Activities may be completed with or without assistive devices. 1-Aqimtsdxsw-asngyvj completes the activity by him/herself with no assistance from a helper. 5-Set-up or Clean-up Assistance-helper sets up or cleans up; patient completes activity. [place] assists only prior to or following the activity. 4-Supervision or Touching Assistance-helper provides verbal cues and/or touching/steadying and/or contact guard assistance as patient completes activity. Assistance may be provided throughout the activity or intermittently. 3-Partial/Moderate Assistance-helper does LESS THAN HALF the effort. [place] lifts, holds or supports trunk or limbs, but provides less than half the effort. 2-Substantial/Maximal Assistance-helper does MORE THAN HALF the effort. [place] lifts or holds trunk or limbs and provides more than half the effort. 9-Qtxchtcdc-eatord does ALL the effort. Patient does none of the effort to complete the activity. Or, the assistance of 2 or more helpers is required for the patient to complete the activity. If activity was not attempted, code reason: 7-Patient Refused. 9-Not Applicable-not attempted and the patient did not perform the activity before the current illness, exacerbation or injury. 10-Not Attempted due to Environmental Limitations-(lack of equipment, weather restraints, etc.). 88-Not Attempted due to Medical Conditions or Safety Concerns. Roll Left & Right (QC): 6 Sit to Lying (QC): 6 Lying to Sitting/Side of Bed(Q: 6 Sit to Stand (QC): 6 Chair/Uvz-lt-Tdpxx Xfer(QC): 6 Toilet Transfer (QC): 6 Car Transfer (QC): 6 Weight Bearing Full Weight Bearing Full Weight Bearing back precautions and restricted lifting Gait Training Does the Patient Walk?: Yes Distance: 650' Walk 10 feet (QC): 6 Walk 50 ft with 2 Turns(QC): 6 Walk 150 ft (QC): 6 Walking 10ft/uneven surface-QC: 6 Gait Assistive Device: FWW Wheelchair Training Does the Pt Use a Wheelchair?: No Stair Training Stair Training: Handrails/: 2 handrails #of Steps: 12 1 Step (curb) (QC): 6 4 Steps (QC): 6 12 Steps (QC): 6 Stairs: Pattern: Step to Balance Picking up an Object (QC): 6 Special Test Comments Pt uses a electronic console display operator and will use one at home due to back precautions. Exercises NuStep Minutes: 16 NuStep Workload: 5 Treatments [id number] OT/PT cotreat due to skill of 2 clinicians required which a clinical rehabilitation specialist could not perform in order to coordinate UE/LEs, decrease fall risk, focus on higher level balance tasks, and due to pt's limitations in mobility, dynamic balance, and LE weakness. OT focused on UE placement and cues for sequencing and safety. PT focused on LE placement, gross overall movement, transfers/mobility, and dynamic standing balance. Pt stood at [facility], removed graded clothespins from around waistline to simulate dynamic balance required with clothing management. Pt completed with no LOB. Pt then completed UE reaching task, batting balloon back and forth with OT as PT focused on dynamic balance. Pt able to let go of walker with both hands during task, no LOB noted, SBA during task. Post tx, pt in therapy gym with PT, all needs met. [id number]: Pt completes QC scoring items for possible anticipated d/c tomorrow. Pt returns to room at end of tx w/all needs met, call light in hand resting in recliner. Assessment Current Status: Good Progress Pt jeana. tx. well. PT Field Recruiter Goals Mcfp Goals PT Mcfp Goals Time Frame: Sep 28, 2022 Roll Left & Right (QC): 6 Sit to Lying (QC): 6 Lying-Sitting on Side/Bed(QC): 6 Sit to Stand (QC): 4 (SBA) Chair/Uoj-fs-Vykxl Xfer(QC): 4 (SBA) Toilet Transfer (QC): 4 (SBA) Car Transfer (QC): 4 (SBA) Does the Patient Walk: Yes Walk 10 feet (QC): 4 (SBA) Walk 50ft with 2 Turns (QC): 4 (SBA) Walk 150 ft (QC): 4 (SBA) Walking 10ft on Uneven Surface: 4 (SBA) 1 Step (curb) (QC): 4 (CGA) 4 Steps (QC): 4 (CGA) 12 Steps (QC): 88 Picking up an Object (QC): 4 (SBA using a electronic console display operator) Wheel 50 feet with 2 turns (QC: 9 Wheel 150 feet: 9 PT Plan Treatment/Plan Treatment Plan: Continue Plan of Care Treatment Plan: Bed Mobility, Education, Functional Activity Veronica, Functional Strength, Group Therapy, Gait, Safety, Therapeutic Exercise, Transfers Treatment Duration: Sep 28, 2022 Frequency: At least 5 of 7 days/Wk (IRF) Estimated Hrs Per Day: 1.5 hours per day Patient and/or Family Agrees t: Yes Time Time In: 900 Time Out: 1030 DATE: Sep 18, 2022 Total Billed Treatment Time: 90 Total Billed Treatment Co-treat w/OT for 30m, Ind. for 60m 1, EX x2 (30m) & FA x4 (60m) [facility] Sep 18, 2022 11:39
[2022-09-18 20:08] VITALS: BP 109/71
[2022-09-19] MEDS ORDERED: HYDR-3820 PO (05:23)
[2022-09-19] MEDS ORDERED: CYCL10TA25 PO (05:23)
--- NOTE | 2022-09-19 05:26 | Discharge Summary ---
Diagnosis/Chief Complaint Date of Admission Sep 14, 2022 at 13:12 Date of Discharge Discharge Date: Sep 19, 2022 Discharge Diagnosis Assessment: Lumbar myelopathy s/p lumbar spine surgery POD # 6 h/o kidney stones Post op constipation Elevated AST Leukocytosis likely stress related Post op acute blood loss anemia mild Plan: Monitor pain PT OT Pain control 09/15/2022: Supportive care 09/16/2022: Monitor pain 09/17/2022: Labs improved Continue aggressive therapy 09/18/2022: DC planned (1) Lumbar myelopathy Discharge Summary Discharge Physical Examination Allergies: Coded Allergies: aspirin (Verified Allergy, Severe, ANAPHYLACTIC SHOCK, 09/14/22) Vitals & I&Os Vital Signs Date Time Temp Pulse Resp B/P (MAP) Pulse Ox O2 Delivery O2 Flow Rate FiO2 09/19/22 15:00 36.5 65 18 115/77 99 Room Air General Appearance: Alert, Oriented X3, Cooperative Respiratory: Clear to Auscultation Cardiovascular: Regular Rate Psych/Mental Status: Mental Status NL Hospital Course Was the Problem List Reviewed?: Yes Uneventful and short course after admitted from [place] following complicated lumbar spine surgery. Labs remained stable. Bowel function returned to normal. Pain was controlled. No decompensation occurred. He was deemed stable for DC. Labs (last 24 hrs) Laboratory Tests 09/15/22 05:10: White Blood Count 12.9H, Red Blood Count 3.88L, Hemoglobin 12.1L, Hematocrit 36L , Mean Corpuscular Volume 94, Mean Corpuscular Hemoglobin 31, Mean Corpuscular Hemoglobin Concent 33, Red Cell Distribution Width 12.9, Platelet Count 180, Mean Platelet Volume 9.9, Immature Granulocyte % (Auto) 1, Neutrophils (%) (Auto) 74, Lymphocytes (%) (Auto) 15, Monocytes (%) (Auto) 11, Eosinophils (%) (Auto) 0, Basophils (%) (Auto) 0, Neutrophils # (Auto) 9.5H, Lymphocytes # (Auto) 1.9, Monocytes # (Auto) 1.4H, Eosinophils # (Auto) 0.0, Basophils # (Auto) 0.0, Immature Granulocyte # (Auto) 0.1, Sodium Level 139, Potassium Level 4.0, Chloride Level 107, Carbon Dioxide Level 22, Anion Gap 10, Blood Urea Nitrogen 21H, Creatinine 0.85, Estimat Glomerular Filtration Rate 96, BUN/Creatinine Ratio 25, Glucose Level 110H, Calcium Level 9.0, Corrected Calcium 9.1, Total Bilirubin 1.6H, Aspartate Amino Transf (AST/SGOT) 51H, Alanine Aminotransferase (ALT/SGPT) 30, Alkaline Phosphatase 77, Total Protein 6.9, Albumin 3.9 09/17/22 05:59: White Blood Count 8.9, Red Blood Count 3.94L, Hemoglobin 12.2L, Hematocrit 37L, Mean Corpuscular Volume 94, Mean Corpuscular Hemoglobin 31, Mean Corpuscular Hemoglobin Concent 33, Red Cell Distribution Width 12.6, Platelet Count 198, Mean Platelet Volume 9.6, Immature Granulocyte % (Auto) 1, Neutrophils (%) (Auto) 70, Lymphocytes (%) (Auto) 19, Monocytes (%) (Auto) 10, Eosinophils (%) (Auto) 1, Basophils (%) (Auto) 0, Neutrophils # (Auto) 6.2, Lymphocytes # (Auto) 1.7, Monocytes # (Auto) 0.8, Eosinophils # (Auto) 0.1, Basophils # (Auto) 0.0, Immature Granulocyte # (Auto) 0.1, Sodium Level 140, Potassium Level 3.8, Chloride Level 107, Carbon Dioxide Level 22, Anion Gap 11, Blood Urea Nitrogen 17, Creatinine 0.85, Estimat Glomerular Filtration Rate 96, BUN/Creatinine Ratio 20, Glucose Level 103, Calcium Level 9.0, Corrected Calcium 9.2, Total Bilirubin 1.5H, Aspartate Amino Transf (AST/SGOT) 35H, Alanine Aminotransferase (ALT/SGPT) 43, Alkaline Phosphatase 83, Total Protein 7.1, Albumin 3.7 Pending Labs Laboratory Tests 09/15/22 05:10: White Blood Count 12.9, Red Blood Count 3.88, Hemoglobin 12.1, Hematocrit 36, Mean Corpuscular Volume 94, Mean Corpuscular Hemoglobin 31, Mean Corpuscular Hemoglobin Concent 33, Red Cell Distribution Width 12.9, Platelet Count 180, Mean Platelet Volume 9.9, Immature Granulocyte % (Auto) 1, Neutrophils (%) (Auto) 74, Lymphocytes (%) (Auto) 15, Monocytes (%) (Auto) 11, Eosinophils (%) (Auto) 0, Basophils (%) (Auto) 0, Neutrophils # (Auto) 9.5, Lymphocytes # (Auto) 1.9, Monocytes # (Auto) 1.4, Eosinophils # (Auto) 0.0, Basophils # (Auto) 0.0, Immature Granulocyte # (Auto) 0.1, Sodium Level 139, Potassium Level 4.0, Chloride Level 107, Carbon Dioxide Level 22, Anion Gap 10, Blood Urea Nitrogen 21, Creatinine 0.85, Estimat Glomerular Filtration Rate 96, BUN/Creatinine Ratio 25, Glucose Level 110, Calcium Level 9.0, Corrected Calcium 9.1, Total Bilirubin 1.6, Aspartate Amino Transf (AST/SGOT) 51, Alanine Aminotransferase (ALT/SGPT) 30, Alkaline Phosphatase 77, Total Protein 6.9, Albumin 3.9 09/17/22 05:59: White Blood Count 8.9, Red Blood Count 3.94, Hemoglobin 12.2, Hematocrit 37, Mean Corpuscular Volume 94, Mean Corpuscular Hemoglobin 31, Mean Corpuscular Hemoglobin Concent 33, Red Cell Distribution Width 12.6, Platelet Count 198, Mean Platelet Volume 9.6, Immature Granulocyte % (Auto) 1, Neutrophils (%) (Auto) 70, Lymphocytes (%) (Auto) 19, Monocytes (%) (Auto) 10, Eosinophils (%) (Auto) 1, Basophils (%) (Auto) 0, Neutrophils # (Auto) 6.2, Lymphocytes # (Auto) 1.7, Monocytes # (Auto) 0.8, Eosinophils # (Auto) 0.1, Basophils # (Auto) 0.0, Immature Granulocyte # (Auto) 0.1, Sodium Level 140, Potassium Level 3.8, Chloride Level 107, Carbon Dioxide Level 22, Anion Gap 11, Blood Urea Nitrogen 17, Creatinine 0.85, Estimat Glomerular Filtration Rate 96, BUN/Creatinine Ratio 20, Glucose Level 103, Calcium Level 9.0, Corrected Calcium 9.2, Total Bilirubin 1.5, Aspartate Amino Transf (AST/SGOT) 35, Alanine Aminotransferase (ALT/SGPT) 43, Alkaline Phosphatase 83, Total Protein 7.1, Albumin 3.7 Discharge Home Medications: Active Scripts Active Hydrocodone-Acetamin 10-325 mg (Hydrocodone/Acetaminophen) 10 Mg-325 Mg Tablet 1 Each PO Q4H PRN Cyclobenzaprine HCl 10 Mg Tablet 10 Mg PO TID PRN Instructions to patient/family Please see electronic discharge instructions given to patient. Diagnosis/Problems Diagnosis/Problems (1) Lumbar myelopathy Clinical Quality Measures DVT/VTE Risk/Contraindication: Contraindications-Pharm: Other *list below* Other: spine surgery NETTIE RAYA DO Sep 19, 2022 05:26
--- NOTE | 2022-09-19 05:26 | D/C HH Face to Face Order ---
D/C HH Face to Face Orders Reconcile Patient Problems Problems Reviewed?: Yes Instructions for Patient HH Patient Instructions/FollowUp: pcp 1 week Physician to follow Patient: PCP Discharge Diet for Home: No Restrictions Patient Problems: Lumbar spine surgery Patient Data-Allergies,Ht & Wt Patient Allergies: Coded Allergies: aspirin (Verified Allergy, Severe, ANAPHYLACTIC SHOCK, 09/14/22) Home Health Need/Face to Face Date of Face to Face: Sep 19, 2022 Clinical Findings: Generalized weakness and fatigue, Instability, Muscle weakness I have seen Pt bnjn-br-[id number]: Yes Discharged To: Home Diagnosis/Conditions: debility Patient is Homebound due to: Jack fall risk due to instabilty, Muscle weakness Homebound Status Due to the above stated illness, injury or surgical procedure (medical condition or diagnosis) and associated clinical findings, the patient is homebound because of his/her inability to leave home except with aid of a supportive device and/or person AND leaving the home requires a considerable and taxing effort or is medically contraindicated. Pt req the following assistanc: Walker Home Health Nursing Orders Home Health Services Order: Nursing Services, Business Information Analyst-Evaluate & Treat, Physical Therapy-Evaluate & Treat Certify Stmt I certify that this patient is under my care and that I, a nurse practitioner or a physician; a anesthesiologist assistant working with me, had a face to face encounter that - meets the physician face to face encounter requirements with this patient as dated. NETTIE RAYA DO Sep 19, 2022 05:26
[2022-09-19 07:37] VITALS: BP 115/77
[2022-09-19] MEDS: polyethylene glycoL POWDER 17 GM (MIRALAX) PACK PO SCH (08:28)
[2022-09-19] MEDS: DOCUSATE SODIUM 100 MG (COLACE) CAP PO SCH (08:28)
[2022-09-19] MEDS: SENNA W/DOCUSATE (SENOKOT S) TABLET PO SCH (08:29)
--- NOTE | 2022-09-19 09:23 | Therapy Team Discharge Summary ---
Therapy Discharge Summary Discharge Recommendations Date of Discharge Physical Therapy Roll Left to Right (QC): 6 Sit to Lying (QC): 6 Lying to Sitting/Side of Bed(Q: 6 Sit to Stand (QC): 6 Chair/Qde-gp-Zhrxo Xfer(QC): 6 Toilet Transfer (QC): 5 Car Transfer (QC): 6 Does the Patient Walk: Yes Mode of Locomotion: Walk Anticipated Mode of Locomotion: Walk Walk 10 feet (QC): 6 Walk 50 ft with 2 Turns(QC): 6 Walk 150 ft (QC): 6 Walking 10ft on uneven surface: 6 Distance: 150', 100' Gait Assistive Device: FWW Does the Pt Use a Wheelchair: No Wheel 50 ft with 2 turns (QC): 9 Wheel 150 ft (QC): 9 #of Steps: 12 1 Step (curb) (QC): 6 4 Steps (QC): 6 12 Steps (QC): 6 Balance Sitting Static: Good Balance Sitting Dynamic: Good Balance-Standing Static: Fair Picking up an Object (QC): 6 Occupational Therapy Pt admitted to [facility] s/p L3-5 TLIF/PSF. At OF, pt was independent with ADLs and functional mobility, recently using a cane. Upon initial evaluation, pt was independent with eating and oral care, required CGA with showering, LE dressing and toileting and min A with UE dressing and footwear. OT tx focused on increas ing BUE strength and activity tolerance, and increasing safety and independence with ADLs and functional mobility. Pt made good progress towards goals, attaining all LTGs. Pt discharging home with spouse, d/c from OT. Decreased Activ Tolerance, Decreased UE Strength Eating (QC): 6 Oral Hygiene (QC): 6 Shower/Bathe Self (QC): 5 (set up to cover dressing on back prior to shower.) Upper Body Dressing (QC): 6 Lower Body Dressing (QC): 6 On/Off Footwear (QC): 6 Toileting Hygiene (QC): 6 PT Residential Goals Residential Goals PT Residential Goals Time Frame: Sep 28, 2022 Roll Left to Right (QC): 6 Sit to Lying (QC): 6 Lying-Sitting on Side/Bed(QC): 6 Sit to Stand (QC): 4 (SBA) Chair/Vwy-sa-Ykcde Xfer(QC): 4 (SBA) Toilet/Commode Transfer (QC): 4 (SBA) Car Transfer (QC): 4 (SBA) Does the Patient Walk: Yes Walk 10 feet (QC): 4 (SBA) Walk 10ft-Uneven Surface(QC): 4 (SBA) Walk 50ft with 2 Turns (QC): 4 (SBA) Walk 150 ft (QC): 4 (SBA) Wheel 50 feet with 2 turns (QC: 9 Wheel 150 feet: 9 1 Step (curb) (QC): 4 (CGA) 4 Steps (QC): 4 (CGA) 12 Steps (QC): 88 Picking up an Object (QC): 4 (SBA using a music historian) OT Residential Goals Online User Experience Strategist Goals Time Frame: Oct 05, 2022 Acute change in mental status: 0 Inattention: 0 Disorganized thinkin Altered level of consciousness: 0 Eating (QC): 6 (met) Oral Hygiene (QC): 6 (met) Toileting Hygiene (QC): 6 (met) Shower/Bathe Self (QC): 5 (met) Upper Body Dressing (QC): 6 (met) Lower Body Dressing (QC): 6 (met) On/Off Footwear (QC): 6 (met) Additional Goals: 1-Demonstrate ADL Tasks, 2-Verbalize Understanding, 3- ImproveStrength/Veronica 1=Demonstrate adherence to instructed precautions during ADL tasks. 2=Patient will verbalize/demonstrate understanding of assistive devices/modifications for ADL. 3=Patient will improve strength/tolerance for activity to enable patient to perform ADL's. ARUN VALLE OT Sep 19, 2022 09:23
--- NOTE | 2022-09-19 10:20 | Therapy Team Discharge Summary ---
Therapy Discharge Summary Discharge Recommendations Date of Discharge Physical Therapy Patient came to rehab s/p L3-5, TLIF/PSF. Upon evaluation patient performs rolling and supine <-> sit with SBA (has quite a bit of pain with supine <-> sit but can do it on his own), sit <-> stand min assist, transfers CGA, car transfer min assist, can ambulate 150' with a rolling walker with CGA (including 50' with at least 2 turns of 90 degrees but needs min assist for 10' over an uneven surface), and could cotton picker operator an object from the floor using a tele grout sewer line repairer with CGA. Patient has been performing bed mobility and transfer training, balance and endurance training, functional strengthening, stair training, gait training, and education. Patient has made good progress and has met all of his long-term goals. Now, patient performs rolling and supine <-> sit with independence, sit <-> stand and transfers with independence, car transfer independent, ambulates 650' with a rolling walker with independence (including 50' with at least 2 turns of 90 degrees and 10' over an uneven surface), can go up and down 12 steps using 2 handrails with independence, and can cotton picker operator an object from the floor using a tele grout sewer line repairer with independence. Patient is being discharged from this facility today and will be discharged from PT at this time. Roll Left to Right (QC): 6 Sit to Lying (QC): 6 Lying to Sitting/Side of Bed(Q: 6 Sit to Stand (QC): 6 Chair/Wwv-fi-Yjupv Xfer(QC): 6 Toilet Transfer (QC): 6 Car Transfer (QC): 6 Does the Patient Walk: Yes Mode of Locomotion: Walk Anticipated Mode of Locomotion: Walk Walk 10 feet (QC): 6 Walk 50 ft with 2 Turns(QC): 6 Walk 150 ft (QC): 6 Walking 10ft on uneven surface: 6 Distance: 150', 100' Gait Assistive Device: FWW Does the Pt Use a Wheelchair: No Wheel 50 ft with 2 turns (QC): 9 Wheel 150 ft (QC): 9 #of Steps: 12 1 Step (curb) (QC): 6 4 Steps (QC): 6 12 Steps (QC): 6 Balance Sitting Static: Good Balance Sitting Dynamic: Good Balance-Standing Static: Fair Picking up an Object (QC): 6 Occupational Therapy Decreased Activ Tolerance, Decreased UE Strength Eating (QC): 6 Oral Hygiene (QC): 6 Shower/Bathe Self (QC): 5 (set up to cover dressing on back prior to shower.) Upper Body Dressing (QC): 6 Lower Body Dressing (QC): 6 On/Off Footwear (QC): 6 Toileting Hygiene (QC): 6 PT Care Home Goals Dog Bather Goals PT Care Home Goals Time Frame: Sep 28, 2022 Roll Left to Right (QC): 6 Sit to Lying (QC): 6 Lying-Sitting on Side/Bed(QC): 6 Sit to Stand (QC): 4 (SBA) Chair/Cdo-po-Oqajd Xfer(QC): 4 (SBA) Toilet/Commode Transfer (QC): 4 (SBA) Car Transfer (QC): 4 (SBA) Does the Patient Walk: Yes Walk 10 feet (QC): 4 (SBA) Walk 10ft-Uneven Surface(QC): 4 (SBA) Walk 50ft with 2 Turns (QC): 4 (SBA) Walk 150 ft (QC): 4 (SBA) Wheel 50 feet with 2 turns (QC: 9 Wheel 150 feet: 9 1 Step (curb) (QC): 4 (CGA) 4 Steps (QC): 4 (CGA) 12 Steps (QC): 88 Picking up an Object (QC): 4 (SBA using a tele grout sewer line repairer) OT Dog Bather Goals Dog Bather Goals Time Frame: Oct 05, 2022 Acute change in mental status: 0 Inattention: 0 Disorganized thinkin Altered level of consciousness: 0 Eating (QC): 6 (met) Oral Hygiene (QC): 6 (met) Toileting Hygiene (QC): 6 (met) Shower/Bathe Self (QC): 5 (met) Upper Body Dressing (QC): 6 (met) Lower Body Dressing (QC): 6 (met) On/Off Footwear (QC): 6 (met) Additional Goals: 1-Demonstrate ADL Tasks, 2-Verbalize Understanding, 3- ImproveStrength/Veronica 1=Demonstrate adherence to instructed precautions during ADL tasks. 2=Patient will verbalize/demonstrate understanding of assistive devic es/modifications for ADL. 3=Patient will improve strength/tolerance for activity to enable patient to perform ADL's. DEVANG NUNN PT Sep 19, 2022 10:19
[2022-09-19 13:30] VITALS: BP 115/77
[2022-09-19 15:00] VITALS: BP 115/77
== END 2022-09-19 13:30 | disposition home health service (06) | DRG 92 ==
PROVIDERS: ADMIT Internal Medicine; ATTEND Internal Medicine
DX: G95.89 Other specified diseases of spinal cord (principal); D62 Acute posthemorrhagic anemia; K59.09 Other constipation; R74.01 Elevation of levels of liver transaminase levels; D72.828 Other elevated white blood cell count; Z87.442 Personal history of urinary calculi
CPT/HCPCS: 36415; 80053; 85025